=== PATIENT | male | born 1945 | race Caucasian/White ===

== ENCOUNTER → 2020-02-29 13:19 | Outpatient (BNVA) | payer MEDICARE, SELFPAY | PROVIDERS: PCP Internal Medicine; Visit Provider Urology | DX: N40.1 Benign prostatic hyperplasia with lower urinary tract symptoms (principal); N13.8 Other obstructive and reflux uropathy; N52.01 Erectile 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 | CPT/HCPCS: 81002; 99214 ==

== ENCOUNTER → 2020-06-04 13:50 | Outpatient (BNVA) | payer MEDICARE, SELFPAY | PROVIDERS: PCP Internal Medicine; Visit Provider Urology | DX: N52.01 Erectile 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 (principal); N40.1 Benign prostatic hyperplasia with lower urinary tract symptoms; N13.8 Other obstructive and reflux uropathy | CPT/HCPCS: 99212; Q3014 ==

== ENCOUNTER 2021-01-28 11:47 | Outpatient (REF) | payer MEDICARE, SELFPAY ==
[2021-01-28 14:40] LABS: Prostate Specific Antigen 2.51 ng/mL (<0.05-4.0)
== END 2021-01-28 11:48 | disposition home or self-care (01) ==
LOC: HO.10HDL 11:47
PROVIDERS: Visit Provider Urology
DX: Z12.5 Encounter for screening for malignant neoplasm of prostate (principal); N40.1 Benign prostatic hyperplasia with lower urinary tract symptoms; N13.8 Other obstructive and reflux uropathy
CPT/HCPCS: 36415; 84153

== ENCOUNTER → 2021-02-04 11:37 | Outpatient (BNVA) | payer MEDICARE, SELFPAY | PROVIDERS: Visit Provider Urology | DX: N40.1 Benign prostatic hyperplasia with lower urinary tract symptoms (principal); N13.8 Other obstructive and reflux uropathy; R97.20 Elevated prostate specific antigen [PSA] | CPT/HCPCS: 51798; 99212 ==

== ENCOUNTER 2021-03-17 10:50 | Outpatient (REF) | payer MEDICARE, SELFPAY ==
--- NOTE | ~2021-03-17 | US_ITS ---
EXAMINATION: US PELVIS LIMITED (BLADDER) CLINICAL INFORMATION: Poor urinary stream. COMPARISON: None TECHNIQUE: Real-time imaging of the bladder. FINDINGS: BLADDER: The bladder appears only partially distended. No gross bladder abnormality identified. No focal bladder wall thickening. Bilateral ureteral jets are demonstrated. Prevoid bladder volume is 145 mL. Postvoid bladder volume is 15.7 mL. PROSTATE GLAND: 5.7 x 5.0 x 5.2 cm, volume 77 mL. US/US bladder IMPRESSION: 1. Enlarged prostate gland. 2. Unremarkable sonographic imaging of the bladder.
== END 2021-03-17 10:51 | disposition home or self-care (01) ==
LOC: HO.US 10:50
PROVIDERS: Visit Provider Urology
DX: R39.12 Poor urinary stream (principal); N40.1 Benign prostatic hyperplasia with lower urinary tract symptoms; N13.8 Other obstructive and reflux uropathy
CPT/HCPCS: 76857

== ENCOUNTER → 2021-03-27 09:50 | Outpatient (BNVA) | payer MEDICARE, SELFPAY | PROVIDERS: Visit Provider Urology | DX: N52.01 Erectile 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 (principal); N40.1 Benign prostatic hyperplasia with lower urinary tract symptoms; N13.8 Other obstructive and reflux uropathy | CPT/HCPCS: 52000; 99212 ==

== ENCOUNTER 2021-06-02 08:10 | Day surgery (SDC) | payer MEDICARE, SELFPAY ==
[2021-05-27 14:38] VITALS: BMI 32.5
--- NOTE | 2021-05-30 13:08 | HO.ANESPROP2 ---
Documented by User: Génesis Aguilar NP 05/30/21 13:13 HPI - Anesthesia Eval Consult details Narrative: 76yo M for Laser Ablation Prostate w/Green Light PMFSH Active Problems Active Problems: All Active Problems (Updated 05/27/21 @ 14:39 by Melida Acevedo RN) Elevated PSA (Acute) BPH w urinary obs/LUTS (Acute) Erectile 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 (Acute) Past Medical History Medical History (Updated 05/27/21 @ 14:39 by Melida Acevedo RN) BPH (benign prostatic hyperplasia) COVID-19 vaccine series completed Elevated PSA Erectile dysfunction GERD (gastroesophageal reflux disease) HTN (hypertension) Hyperlipidemia Hypothyroid Renal mass Surgical History Surgical History History of surgery Social History Social History Are you a primary insurance healthcare consultant to a significant other at home: No Do you presently have visiting nurse or other home services: No Patient Tobacco Use Status: Former Tobacco user Quit Date: age 47 Tobacco use type: Cigarette Use of substances other than those prescribed or required for medical reasons: No Are you DNR?: No Advance Directives: No (states is his 7 will bring copy of HCP DOS) Advance Directives Information Provided: Yes Advance Directives on File: No Recently lost weight without trying: No Eating poorly because of decreased appetite: No Nutrition Risks: No Nutritional Risk Meds Allergies Allergy/AdvReac Type Severity Reaction Status Date / Time No Known Allergies Allergy Verified 03/27/21 10:15 Home Medications Medication Instructions Recorded Confirmed Last Taken Type finasteride 5 mg tablet 5 mg PO DAILY 02/29/20 02/29/20 Unknown History flu vac qv 2019(18yr up)rc(PF) ml IM 02/29/20 02/29/20 Unknown History levothyroxine 88 mcg tablet 88 mcg PO DAILY 02/29/20 05/27/21 Unknown History lisinopril 5 mg tablet 5 mg PO DAILY 02/29/20 05/27/21 Unknown History metoprolol succinate 50 mg 50 mg PO DAILY 02/29/20 05/27/21 Unknown History tablet,extended release 24 hr omeprazole 40 mg capsule,delayed 40 mg PO DAILY 02/29/20 05/27/21 Unknown History release sertraline 50 mg tablet 50 mg PO DAILY 02/29/20 05/27/21 Unknown History simvastatin 40 mg tablet 40 mg PO BEDTIME 02/29/20 05/27/21 Unknown History varicella-zoster glycoE [id number] IM 02/29/20 02/29/20 Unknown History adj(PF) 50 mcg/0.5 mL IM susp, kit clobetasol 0.05 % topical cream 1 appl TOPICAL BID 02/04/21 05/27/21 Unknown History fenofibrate 54 mg tablet 54 mg PO DAILY 02/04/21 05/27/21 Unknown History Exam Exam Date and Time: May 30, 2021 1308 Height,Weight and Vital Signs: Height 5 ft 8 in Weight 97.069 kg Assessment and Plan Assessment Anesthesia Assessment: Chart Reviewed Documented by User: Miladys Aguirre MD 06/02/21 08:44 [facility] Past Medical History Medical History (Updated 05/27/21 @ 14:39 by Melida Acevedo RN) BPH (benign prostatic hyperplasia) COVID-19 vaccine series completed Elevated PSA Erectile dysfunction GERD (gastroesophageal reflux disease) HTN (hypertension) Hyperlipidemia Hypothyroid Renal mass Family History Family history of problems with anesthesia: No Surgical History Surgical History History of surgery History of Problems with Anesthesia: No Social History Social History Are you a primary insurance healthcare consultant to a significant other at home: No Do you presently have visiting nurse or other home services: No Patient Tobacco Use Status: Former Tobacco user Quit Date: age 47 Tobacco use type: Cigarette Use of substances other than those prescribed or required for medical reasons: No Are you DNR?: No Advance Directives: No (states is his 7 will bring copy of HCP DOS) Advance Directives Information Provided: Yes Advance Directives on File: No Recently lost weight without trying: No Eating poorly because of decreased appetite: No Nutrition Risks: No Nutritional Risk Meds Allergies Allergy/AdvReac Type Severity Reaction Status Date / Time No Known Allergies Allergy Verified 03/27/21 10:15 Home Medications Medication Instructions Recorded Confirmed Last Taken Type finasteride 5 mg tablet 5 mg PO DAILY 02/29/20 02/29/20 Unknown History flu vac qv 2019(18yr up)rc(PF) ml IM 02/29/20 02/29/20 Unknown History levothyroxine 88 mcg tablet 88 mcg PO DAILY 02/29/20 05/27/21 Unknown History lisinopril 5 mg tablet 5 mg PO DAILY 02/29/20 05/27/21 Unknown History metoprolol succinate 50 mg 50 mg PO DAILY 02/29/20 05/27/21 Unknown History tablet,extended release 24 hr omeprazole 40 mg capsule,delayed 40 mg PO DAILY 02/29/20 05/27/21 Unknown History release sertraline 50 mg tablet 50 mg PO DAILY 02/29/20 05/27/21 Unknown History simvastatin 40 mg tablet 40 mg PO BEDTIME 02/29/20 05/27/21 Unknown History varicella-zoster glycoE vacc-[id number] IM 02/29/20 02/29/20 Unknown History adj(PF) 50 mcg/0.5 mL IM susp, kit clobetasol 0.05 % topical cream 1 appl TOPICAL BID 02/04/21 05/27/21 Unknown History fenofibrate 54 mg tablet 54 mg PO DAILY 02/04/21 05/27/21 Unknown History Exam Airway Mallampati Class: II TM Dist: >3cm Neck ROM: Full Heart: rrr Lungs: cta Assessment and Plan Assessment Anesthesia Assessment: Anesthesia Plan Discussed and Chart Reviewed Final Anesthetic Review Family History of Problems with Anesthesia: No History of Problems with Anesthesia: No NPO: Yes ASA Class: III Final Preanesthetic Review: No Changes in Pt Med Stat, Meds/Allgs Chart Reviewed and Consent Obtained/Reviewed Patient Risk: Intermediate Procedure Risk: Intermediate Anesthetic Plan Anesthetic Plan: GA Disposition: Standard PACU
[2021-06-02] VITALS (8 sets, daily range): BP systolic 106–177; BP diastolic 46–78; PULSE 49–57; RESP 16–18; TEMP 36–37.3; O2SAT 94–97
[2021-06-02] MEDS: Lactated Ringers 1,000 ML 100 ML IVCONT (08:48)
--- NOTE | 2021-06-02 09:11 | ECG_ITS ---
Test Reason : inverted t wave Blood Pressure : / mmHG Vent. Rate : 057 BPM Atrial Rate : 057 BPM P-R Int : 196 ms QRS Dur : 088 ms QT Int : 432 ms P-R-T Axes : 058 -33 094 degrees QTc Int : 420 ms Sinus bradycardia Left axis deviation T wave abnormality, consider lateral ischemia Abnormal ECG No previous ECGs available Referred By: Miladys Aguirre Electronically Signed By:JOVAN DAMIAN MD
--- NOTE | 2021-06-02 09:59 | MHC.SHP ---
Pre-Procedural Eval Section A Date of Service: 06/02/21 The patient is an INPATIENT: No Changes since office visit: No Cold of Flu in the past 2 weeks, No New Medical Problems, No Changes in Medication and No Patient answered all questions The History & Physical has been completed within 30 days and I have reviewed it.: Yes Section B Chief Complaint: benign prostatic hyperplasia Allergies: Allergies Allergy/AdvReac Type Severity Reaction Status Date / Time No Known Allergies Allergy Verified 03/27/21 10:15 Plan Diagnosis/Plan: Unchanged (Laser enucleation of the prostate) I have reviewed the history and physical and performed a pertinent physical examination on my patient. No changes have occurred unless specified.
--- NOTE | 2021-06-02 10:01 | MHC.SHP ---
Pre-Procedural Eval Section A Date of Service: 06/02/21 The patient is an INPATIENT: No Changes since office visit: No Cold of Flu in the past 2 weeks, No New Medical Problems, No Changes in Medication and No Patient answered all questions Section B Chief Complaint: benign prostatic hyperplasia Details of Present Illness: BPH Relevant Family History (Specify if Yes): No Relevant Social History: None Present Medications: see Short Stay Collaborative assessment Medical History: No relevant PMH History of Previous Operations: No relevant previous surgery Allergies: Allergies Allergy/AdvReac Type Severity Reaction Status Date / Time No Known Allergies Allergy Verified 03/27/21 10:15 Review of Systems Sugical H&P ROS: Negative: Constitution, Cardiovascular, Respiratory, Neurological, Psychiatric, Hem-Onc, Allergic/Immunologic, Gastrointestinal, Genitourinary, Musculoskeletal, Integumentary, Endocrine and Eyes/Ears/Nose/Throat Exam Surgical H&P Exam: Normal: HEENT, Normal: Heart, Normal: Lungs, Normal: Extremities, Normal: Abdomen, Normal: Skin and Normal: Neurological Plan Diagnosis/Plan: Unchanged (Laser enucleation of prostate) I have reviewed the history and physical and performed a pertinent physical examination on my patient. No changes have occurred unless specified.
--- NOTE | 2021-06-02 11:35 | P.OP_ITS ---
Operative Note Operative Note Date of Service: 06/02/21 Narrative: PreOperative Diagnosis: Bladder outlet obstruction Post Operative Diagnosis: Bladder outlet obstruction Procedure: GreenLight laser enucleation of the prostate Surgeon: Dr Sanjeev Vance Anesthesia: General Indications for procedure: History of bladder outlet obstruction. Treated with alpha-refugio and other medications. Still with symptoms. On cystoscopy in office has trilobar impingement with large median lobe. Recommend enucleation of prostate using GreenLight laser Procedure: After informed consent was verified the patient was brought to the operating room and placed in a supine position. Anesthesia was administered per protocol. Patient was placed in modified dorsal lithotomy position and prepped and draped in a sterile fashion. Safety pause time-out was confirmed. Antibiotics have been given. Twenty-four [place] laser cystoscope was inserted per urethra. No abnormalities found the anterior posterior urethra. The bladder was filled on both ureteric orifices were seen in normal position away from our area of interest. Using a GreenLight laser settings of 80 w incisions were made at the 5 and 7 o'clock position. They were taken down and then laterally on each side. They were brought from the bladder neck down to the level of the veru. These defined the lateral aspects of the median lobe area. The median lobe was ablated and enucleated tissue removed. Once the median lobe area had been cleaned attention was directed to the lateral lobes. We started with the patient's left lateral lobe. Firstly the 05:00 o'clock groove was further developed. This was moved in the lateral position to undermine the tissue on the lateral side. Focus was then placed on the laser at the 1 o'clock position in developing a secondary groove down to the level of bladder fibers. The intervening tissue between these 2 grooves was removed with a combination of enucleation ablation working from the apex toward the bladder neck. A similar procedure was repeated on the patient's right-hand side. When this was completed debris and pieces of prostate removed from the bladder. Both ureteric orifices were reviewed again in shown to be patent in away from any areas of energy damage. The apical area was reviewed in any stray ooze was controlled. A 22 [place] 30 cc balloon Alaniz catheter was placed over stylet into the bladder. Clear efflux was obtained. 30 cc was placed in the balloon and gentle traction was placed. A snap was used to hold tension once the patient will be moved and transported. Once transportation its finish this novel be removed. A belladonna and opiate suppository was placed for postprocedure pain management. He tolerated procedure well was extubated in the operating and transferred in a stable condition to the recovery area. Total lasing energy 266 kilojoules, laser times 32 mins Pathology: Prostate tissue Drains: Alaniz catheter
== END 2021-06-02 13:34 | disposition home or self-care (01) ==
PROVIDERS: PCP Internal Medicine; Visit Provider Urology
PROC: (CPT 52648; principal; 2021-06-02 10:10)
DX: N40.1 Benign prostatic hyperplasia with lower urinary tract symptoms (principal); N52.01 Erectile 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; N13.8 Other obstructive and reflux uropathy; R39.12 Poor urinary stream; R39.11 Hesitancy of micturition; R33.8 Other retention of urine; K21.9 Gastro-esophageal reflux disease without esophagitis; I10 Essential (primary) hypertension; E78.5 Hyperlipidemia, unspecified; Z79.899 Other long term (current) drug therapy; Z87.891 Personal history of nicotine dependence
CPT/HCPCS: 52648; 88305; 93005; J1100; J1956; J2405; J3010

== ENCOUNTER → 2021-06-05 08:51 | Outpatient (BNVA) | payer MEDICARE, SELFPAY | PROVIDERS: PCP Internal Medicine; Visit Provider Urology | DX: N40.1 Benign prostatic hyperplasia with lower urinary tract symptoms (principal); N13.8 Other obstructive and reflux uropathy | CPT/HCPCS: 51700; 51798 ==

== ENCOUNTER → 2021-07-22 09:30 | Outpatient (BNVA) | payer MEDICARE, SELFPAY | PROVIDERS: PCP Internal Medicine; Visit Provider Urology | DX: N40.1 Benign prostatic hyperplasia with lower urinary tract symptoms (principal); N13.8 Other obstructive and reflux uropathy; N52.01 Erectile 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; R97.20 Elevated prostate specific antigen [PSA] | CPT/HCPCS: 51798; 99212 ==

== ENCOUNTER → 2022-01-22 11:24 | Outpatient (BNVA) | payer MEDICARE, SELFPAY | PROVIDERS: PCP Internal Medicine; Visit Provider Urology | DX: N52.01 Erectile 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 (principal); N40.1 Benign prostatic hyperplasia with lower urinary tract symptoms; N13.8 Other obstructive and reflux uropathy | CPT/HCPCS: Q3014 ==

== ENCOUNTER 2023-10-20 18:28 | Outpatient (REF) | payer MEDICARE, SELFPAY ==
[2023-10-20 18:42] LABS: Appearance Urine Cloudy; Color Urine Yellow; Glucose Urine UA Negative (Negative); Leukocyte Esterase Urine Large (3+) (Negative); Nitrite Urine Negative (Negative); PH 6.5 (5.0-9.0); UMIC TRIGGER UACC YES; Urine Blood Large (3+) (Negative); Urine Ketones Negative (Negative); Urine Protein Trace mg/dL (Neg-Trace)
[2023-10-20 18:44] LABS: Bacteria Urine Trace (None Seen); Hyaline Casts Urine 0-2 /LPF (0-2); Squamous Epithelial Cell Urine 0-2 /HPF (0-2); UACC Culture Trigger YES; WBC Urine >50 /HPF (0-5)
== END 2023-10-20 18:29 | disposition home or self-care (01) ==
LOC: HO.MANLNP 18:28
PROVIDERS: Visit Provider Physician Assistant
DX: N10 Acute pyelonephritis (principal)
CPT/HCPCS: 81001; 87086

== ENCOUNTER 2024-02-15 11:40 | Outpatient (REF) | payer MEDICARE, SELFPAY ==
[2024-02-15 13:31] LABS: Appearance Urine Clear; Color Urine Yellow; Glucose Urine UA Negative (Negative); Leukocyte Esterase Urine Negative (Negative); Nitrite Urine Negative (Negative); PH 6.5 (5.0-9.0); Specific Gravity - Urine <= 1.005 (1.005-1.025); UMIC TRIGGER UACC YES; Urine Blood Small (1+) (Negative); Urine Ketones Negative (Negative); Urine Protein Negative (Neg-Trace)
[2024-02-15 13:49] LABS: Bacteria Urine None Seen (None Seen); Hyaline Casts Urine 0-2 /LPF (0-2); RBC Urine 0-2 /HPF (0-2); Squamous Epithelial Cell Urine 0-2 /HPF (0-2); WBC Urine 0-5 /HPF (0-5)
== END 2024-02-15 11:41 | disposition home or self-care (01) ==
LOC: HO.MANLDS 11:40
PROVIDERS: Visit Provider Physician Assistant
DX: N10 Acute pyelonephritis (principal)
CPT/HCPCS: 81001

== ENCOUNTER 2024-03-17 07:57 | Outpatient (REF) | payer MEDICARE, SELFPAY ==
--- NOTE | ~2024-03-17 | CT_ITS ---
EXAMINATION: CT ABDOMEN AND PELVIS WITHOUT AND WITH CONTRAST CLINICAL INFORMATION: Hematuria. Evaluate for bladder cancer, stones, cystitis. COMPARISON: Bladder ultrasound dated 03/17/2021. TECHNIQUE: Multidetector volumetric imaging was performed of the abdomen and pelvis before and after the IV administration of 85 mL of Omnipaque 300 intravenous contrast. Sagittal and coronal reformatted images were obtained on the technologist's workstation. This CT examination was performed using dose optimization techniques as appropriate, variously including the following: *Automated exposure control *Adjustment of mA and/or kV according to patient size (this includes techniques or standardized protocols for targeted exams where dose is matched to indication/reason for exam; i.e. extremities or head) *Use of iterative reconstruction technique DLP: 948 mGy-cm FINDINGS: LUNG BASES: The visualized lung bases are unremarkable. LIVER, GALLBLADDER, AND BILIARY TREE: The liver is normal in size and shape. Mild parenchymal hypoattenuation, consistent with mild steatosis. No focal hepatic lesion or biliary ductal dilatation is present. The gallbladder is unremarkable with no evidence of radiopaque gallstones, gallbladder wall thickening, or obvious pericholecystic inflammatory changes. PANCREAS: Unremarkable. SPLEEN: Unremarkable. ADRENAL GLANDS: Unremarkable. KIDNEYS AND URETERS: The kidneys are normal in size, shape, and attenuation. No hydronephrosis, hydroureter, or calculi seen. Multiple parapelvic and parenchymal renal cysts. Findings are not clinically significant and no dedicated follow-up imaging is recommended. No perinephric stranding. BLADDER: Partially distended urinary bladder. No wall thickening or inflammatory change. No calcification. Prominent prostatomegaly with mass effect on the urinary bladder and ingrowth of the prostate tissue into the posterior aspect of the bladder. Overall the prostate measures up to 5.2 x 5.2 x 7.2 cm. GASTROINTESTINAL TRACT: No small or large bowel obstruction. Sigmoid diverticulosis without evidence of acute diverticulitis. Unremarkable appendix. PERITONEAL CAVITY: No intra-abdominal free air or free fluid. ABDOMINAL WALL: No significant hernia is appreciated. LYMPH NODES: No lymphadenopathy. VASCULAR: No abdominal aortic dissection or dilatation. Atherosclerotic calcifications. PELVIC VISCERA: Prominent prostatomegaly with mass effect on the posterior urinary bladder as well as lobulated ingrowth as described above. OSSEOUS STRUCTURES: No acute osseous abnormality. CT/CT abdomen pelvis wo/w IV con IMPRESSION: 1. Prominent prostatomegaly with mass effect on the urinary bladder and ingrowth into the posterior aspect of the urinary bladder. No urinary bladder wall thickening or inflammatory change. No calcification. 2. No hydronephrosis or nephrolithiasis. Multiple bilateral renal cysts. 3. Mild hepatic steatosis. No hepatic parenchymal lesion or biliary ductal dilatation. 4. Diverticulosis without evidence of acute diverticulitis. No small or large bowel obstruction. Unremarkable appendix. 5. No intra-abdominal mass, lymphadenopathy, or ascites. Fleischner guidelines were followed. Electronically signed by: Bhargav Cabrera MD 03/17/2024 11:23 AM [facility]
[2024-03-17] MEDS: iohexoL 350 MG/ML 100 ML INFUS..BTL 85 ML IV (09:29)
[2024-03-17 15:27] LABS: Creatinine POC 1.2 mg/dL (0.5-1.4); GFR POC > 60
== END 2024-03-17 07:58 | disposition home or self-care (01) ==
LOC: HO.CT 07:57
PROVIDERS: PCP Internal Medicine; Visit Provider Internal Medicine
DX: R31.0 Gross hematuria (principal)
CPT/HCPCS: 74178; 82565; Q9967

== ENCOUNTER 2024-05-16 13:15 | Outpatient (AMB) | payer MEDICARE, SELFPAY ==
--- NOTE | 2024-05-16 13:25 | A.OFFVIS_ITS ---
Intake Visit Reasons: PVR/Enlarged Prostate/CT Follow Up(set) Intake Note: Patient is present for PVR/ENLARGE PROSTATE/CT F/U Urology Medication:TADALAFIL Antibiotic Allergy:NONE Blood Thinner:NONE TODAY'S PVR:0ML'S Bottoming Room Supervisor Required: No Allergies No Known Allergies Allergy (Verified 05/16/24 13:27) HPI Comments Details: Oh is a pleasant male. He is a patient of Dr. Grace. He is seen for the following urologic conditions - lower urinary tract symptoms - erectile dysfunction Last seen 01/27/2022 PVR 0 cc Remains on tadalafil Has had episode of gross hematuria Recommend office cystoscopy 04/02 CT scan with enlarged prostate Trial terazosin Lower Urinary Tract Symptoms: PSA stable 2.2 Current visit is for further evaluation of, lower urinary tract symptoms, predominate obstructive symptoms. Current treatment includes - 05/31 GreenLight laser prostate Prostate Symptom Score 06/26 Mild (0-8), Bother 2 07/25 , Mild (0-8), Bother 2 08/27 , Mild (0-8), Bother 3. Symptoms include 08/27 , and are progressing, weak stream, nocturia (>2). Prior Prostate Score mild. PSA 11/20 8.4 - TRUS negative, December 2014 4.6 07/25 2.4, 07/26 1.9, 08/27 2.5, 01/27 2.5 Free 0.7 - 01/28 2.5, 01/29 2.2 Prostate volume 90 gm on US. Associated conditions CAD No CVA No diabetes No elevated PSA No erectile dysfunction No hematuria No renal insufficiency No urge incontinence No urinary retention No urinary tract infection No psychiatric diagnosis No Testing at next visit will include Prostate Symptom Score, uroflow, bladder scan. Treatment plan 12 month follow-up [facility] Medical History BPH (benign prostatic hyperplasia) COVID-19 vaccine series completed Elevated PSA Erectile dysfunction GERD (gastroesophageal reflux disease) HTN (hypertension) Hyperlipidemia Hypothyroid Renal mass Surgical History History of surgery Social History Are you a primary ambulatory care coordinator to a significant other at home: No Do you presently have visiting nurse or other home services: No Patient Tobacco Use Status: Former Tobacco user Tobacco use type: Cigarette Office Procedures Post Void Residual Post Residual Void Post Void Residual (PVR): 0 [id number] Void Residual by ultrasound Results AMB Urinalysis, Automated UA Leukoctes 0 Manjula/uL Last Edit by FLOYD Paul on 05/16/24 13:37 UA Nitrite Negative Last Edit by Ke Whitmore CCM on 05/16/24 13:37 UA Urobilinogen 0.2 mg/dL Last Edit by Ke Whitmore [facility] on 05/16/24 13:3 7 UA Protein 15 mg/dL Last Edit by Ke Whitmore [facility] on 05/16/24 13:37 UA pH 6.0 Last Edit by Ke Whitmore [facility] on 05/16/24 13:37 UA Blood 0 Joon/uL Last Edit by Ke Whitmore [facility] on 05/16/24 13:37 UA Specific [place] 1.015 Last Edit by Ke Whitmore CCM on 05/16/24 13: 37 UA Ketone Negative Last Edit by Ke Whitmore [facility] on 05/16/24 13:37 UA Bilirubin 0 mg/dL Last Edit by Ke Whitmore [facility] on 05/16/24 13:37 UA Glucose 0 mg/dL Last Edit by Ke Whitmore [facility] on 05/16/24 13:37 Results Reviewed Results Reviewed: Laboratory Last Values Urine pH (Auto) 6.0 05/16/24 13:37 Specific [place] (Auto) 1.015 05/16/24 13:37 Urine Protein (Auto) 15 mg/dL 05/16/24 13:37 Glucose (UA)(Auto) 0 mg/dL 05/16/24 13:37 Urine Ketones (Auto) Negative 05/16/24 13:37 Urine Blood (Auto) 0 Joon/uL 05/16/24 13:37 Urine Nitrite (Auto) Negative 05/16/24 13:37 Urine Bilirubin (Auto) 0 mg/dL 05/16/24 13:37 Urine Urobilinogen (Auto) 0.2 mg/dL 05/16/24 13:37 Leukocyte Esterase (Auto) 0 Manjula/uL 05/16/24 13:37 Assessment & Plan Assessment & Plan (1) Gross hematuria: Code(s): R31.0 - Gross hematuria Category: Medical (2) BPH w urinary obs/LUTS: Code(s): N40.1 - Benign prostatic hyperplasia with lower urinary tract symptoms; N13.8 - Other obstructive and reflux uropathy Category: Medical Plan Plan cystoscopy Orders: Orders AMB Urinalysis Automated Today Z13.9 - Encounter for screening, unspecified Medications: New terazosin 5 mg PO BEDTIME 30 days 30 caps 1RF N13.8 - Other obstructive and reflux uropathy, N40.1 - Benign prostatic hyperplasia with lower urinary tract symptoms, R35.0 - Frequency of micturition Coding Diagnoses Gross hematuria R31.0 BPH w urinary obs/LUTS N40.1; N13.8 CPT Codes Post Residual Void - PVR CPT Code: 69879-[id number] Void Residual by ultrasound ([id number])
--- OUTSIDE RECORDS SUMMARY | 2024-05-16 15:40 | XMS_ITS | Continuity of Care Document ---
Author Organization [facility], [facility] Address [address] [place] [address] Assessment Encounter Date Assessment Date Assessment LastModified by Organization Details LastModified Time 02/28/2024 02/28/2024 Patient presente d to office today for their Medicare Annual Wellness Visit. Education was provided on healthy nutrition, including a diet rich in fruits and vegetables, minimizing simple carbohydrates, salt, and saturated fats. Encouraged regular cardiovascular exercise such as walking at least 30 minutes daily, 5 times per week. Emphasized preventive health measures and educated pt on fall prevention and community-based lifestyle interventions to help reduce health risks and promote healthy living. Not available 02/09/2024 11:06:57 Plan of Treatment Reminders Order Date Submit Date Provider Last Modified By Organization Details Last Modified Time Details Appointments FOLLOW UP 15 2024 10:15A M DR FOUNTAIN Not available Not available Not available MEDICARE ANNUAL WELLNESS 2024 11:30A M DR FOUNTAIN Not available Not available Not available Lab cytology, urine 2023 024 [facility], [address] [place] [address], [id number], 03/01/2024 11:13:58 CMP, serum or plasma 2023 024 [facility] (Outpatient), [address] [place] [address], [id number], 02/28/2024 18:29:13 lipid panel, blood 2023 024 [facility] (Outpatient), [address] [place] [address], [id number], 02/28/2024 13:53:46 hemoglobi n, gastroint estinal, stool 2023 [facility] (Outpatient), [address] [place], [id number], 02/28/2024 13:53:46 CBC w/ auto diff 2023 [facility] (Outpatient), [address] [place] [address], [id number], 02/28/2024 17:43:17 CMP, serum or plasma 2023 [facility] (Outpatient), [address] [place] [address], [id number], 02/28/2024 13:53:46 Referral None recorded. Procedures None recorded. Surgeries None recorded. Imaging CT, abdomen + pelvis, w/o contrast - estephania please 2023 [facility], [address] [place], [id number], 02/29/2024 08:28:21 Medication Orders None recorded. Patient TargetsNo targets recorded. Patient Instructions Encounter Date Encounter Id Patient Instructions Last Modified By Organization Details Last Modified Time 02/28/2024 [id number] blood in the urine: care instructions Not available 02/28/2024 13:52:23 advance care planning: care instructions Not available 02/28/2024 13:52:24 Discussed and explained advance directives such as standard forms to the {{patient* caregi mark patient and caregiver}}. Face to face discussion lasted for a duration of __10_ minutes. Not available 02/28/2024 13:53:23 Reason for Referral None Reported. Results Created Date Observation Date Name Description Value Unit Range Abnormal Flag Note LastModifiedBy Organization Detail LastModifiedTime 03/17/20 24 03/17/2024 CT, abdom en + pelvi s, w/o contr ast No observ ation record ed. [facility] [address], [place], [address], 03/17/2024 14:15:44 Result Notes None recorded. 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 911131103 Active 2020 Nick Fountain DO [address] [place], [address], [facility] 1 16:40:19 Hypercho lesterol emia 47847133 Active 2017 Not Available [facility] 0 20:05:24 Atherosc lerosis Active 2017 Not Available [facility] 0 20:05:24 Divertic ulitis 896186450 Active 2017 Not Available [facility] 0 20:05:24 Polyp of colon 27376053 Active 2017 hyperplas tic Not Available [facility] 0 20:05:24 Cyst of kidney 990144382 Active 2017 Not Available [facility] 0 20:05:24 Gastriti s 6482525 Active 2017 Not Available [facility] 0 20:05:24 Dugan' s esophagu s 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 2017 Not Available [facility] 0 20:05:24 Gastroes ophageal reflux disease 220583494 Active 2017 Not Available [facility] 0 20:05:24 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 Not Available [facility] 0 20:05:24 Prostate specific antigen above referenc e range 236478966 Active 2017 Not Available [facility] 0 20:05:24 Impaired fasting glycemia 717102068 Active 2017 Not Available [facility] 0 20:05:24 Steatosi s of liver 997921112 Active 2017 Not Available [facility] 0 20:05:24 Essentia l hyperten casey 86104113 Active 2022 ANN WILDER [address] [place], [address], [facility] 3 11:21:04 Pain of bilatera l knee joints 14732553253 4104 Active 2022 ANN WILDER [address] [place], [address], [facility] 3 11:25:12 Chondrom alacia of left patella 48654464873 9106 Active 2022 ANN WILDER [address] [place], [address], [facility] 3 11:25:45 Pain of right knee joint 17533873366 4100 Active 2022 ANN WILDER [address] [place], [address], [facility] 3 15:30:22 Pain of left knee joint 02536413476 4107 Active 2022 ANN WILDER [address] [place], [address], [facility] 3 15:30:31 Renal insuffic iency 826928765 Active 2023 Nick Fountain DO [address] [place], [address], [facility] 4 14:50:10 Acute urinary tract infectio n 874433930 Active 2023 ANN WILDER [address] [place], [address], [facility] 4 14:11:06 Kidney stone 84263361 Active 2023 ANN WILDER [address] [place], [address], [facility] 4 14:12:11 Oh powell 398147418 Active 2023 ANN WILDER [address] [place], [address], [facility] 4 09:50:19 Fear of flying 437702646 Active 2023 ANN WILDER [address] [place], [address], [facility] 4 10:27:10 Large prostate 043295749 Active 2023 ANN WILDER [address] [place], [address], [facility] 4 14:16:21 Problem Notes None recorded. Procedures Surgical History Date Name Laterality Status Provider Name and Address Organization Details Recorded Time 6 Colonoscopy completed Joana Hoover [facility] 04/22/2018 10:36:22 Imaging Results None recorded. Procedure Notes None recorded. Medical Equipment None Reported. Allergies No known drug allergies Medications Name Sig Start Date Stop Date Status Note LastModified by Organization Details LastModified Time metoprolol succinate ER 50 mg tablet,exte nded release 24 hr TAKE 1 TABLET BY MOUTH ONCE DAILY 10/06 completed Not Available Not Available Not Available sulfamethox azole 400 mg-trimetho prim 80 mg tablet TAKE 1 TABLET BY MOUTH ONCE DAILY 11/19 completed Not Available Not Available Not Available metoprolol succinate ER 100 mg tablet,exte nded release 24 hr TAKE 1 TABLET BY MOUTH ONCE DAILY active Not Available Not Available No t Available clobetasol 0.05 % topical cream APPLY A THIN LAYER TOPICALLY TO AFFECTED AREA(S) TWICE DAILY active Not Available Not Available No t Available ciprofloxac in 500 mg tablet TAKE 1 TABLET BY MOUTH EVERY 12 HOURS FOR 5 DAYS 02/27 completed Not Available Not Available Not Available omeprazole 40 mg capsule,del ayed release TAKE 1 CAPSULE BY MOUTH ONCE DAILY active Not Available Not Available No t Available tramadol 50 mg tablet TAKE 1 TABLET BY MOUTH EVERY 6 HOURS NEEDED FOR PAIN (SCALE SCORE 4-6) 11/19 completed Not Available Not Available Not Available triamcinolo ne acetonide 0.1 % topical cream 12/14 completed Not Available Not Available Not Available simvastatin 40 mg tablet TAKE 1 TABLET BY MOUTH ONCE DAILY IN THE EVENING active Not Available Not Available No t Available levothyroxi ne 100 mcg tablet TAKE 1 TABLET BY MOUTH ONCE DAILY active Not Available Not Available No t Available levothyroxi ne 88 mcg tablet TAKE 1 TABLET BY MOUTH ONCE DAILY. 04/13 completed Not Available Not Available Not Available tamsulosin 0.4 mg capsule 11/19 completed Not Available Not Available Not Available lisinopril 5 mg tablet TAKE 1 TABLET BY MOUTH ONCE DAILY 08/12 completed Not Available Not Available Not Available lorazepam 1 mg tablet TAKE 1 TABLET BY MOUTH THREE TIMES DAILY NEEDED FOR 5 DAYS 02/13 completed Not Available Not Available Not Available fluticasone propionate 50 mcg/actuati on nasal spray,suspe nsion [place] 4 sprays every day by intranasa l route for 30 days. active Not Available Not Available No t Available sertraline 50 mg tablet Take 1 tablet by mouth once daily 08/18 completed Not Available Not Available Not Available finasteride 5 mg tablet TAKE 1 TABLET BY MOUTH ONCE DAILY active Not Available Not Available No t Available naproxen 500 mg tablet TAKE 1 TABLET BY MOUTH TWICE DAILY FOR 7 DAYS NEEDED FOR PAIN 02/27 completed Not Available Not Available Not Available Pneumovax-2 3 25 mcg/0.5 mL injection syringe 08/12 completed Not Available Not Available Not Available Adacel (Tdap Adolesn/Jesus lt)(PF)2 Lf-(2.5-5-3 -5)-5 Lf/0.5 mL IM syringe 08/12 completed Not Available Not Available Not Available fenofibrate 54 mg tablet TAKE 1 TABLET BY MOUTH ONCE DAILY active Not Available Not Available No t Available Prevnar 13 (PF) 0.5 mL intramuscul ar syringe 04/22 completed Not Available Not Available Not Available Fluzone High-Dose 9460-6527 (PF) 180 mcg/0.5 mL intramuscul ar syringe 10/15 completed Not Available Not Available Not Available Shingrix (PF) 50 mcg/0.5 mL intramuscul ar suspension, kit PHARMACIS T ADMINISTE RED IMMUNIZAT ION ADMINISTE RED AT TIME OF DISPENSIN G 08/12 completed Not Available Not Available Not Available Fluzone High-Dose 5707-6525 (PF) 180 mcg/0.5 mL intramuscul ar syringe 04/22 completed Not Available Not Available Not Available Fluzone High-Dose (PF) 180 mcg/0.5 mL intramuscul ar syringe 08/12 completed Not Available Not Available Not Available Flublok Quad (PF) 180 mcg (45 mcg x 4)/0.5 mL IM syringe 08/12 completed Not Available Not Available Not Available Vitals Date Recorded Body height Body mass index (BMI) Body weight Heart rate Oxygen saturation Oxygen saturation in Arterial blood by Pulse oximetry Systolic blood pressure Diastolic blood pressure Provider Name and Address Organization Details Last Updated DateTime 4 173.99 cm 30.9 kg/m2 52865.0 3 g 58 /min 95 % 95 % 128 mm[Hg] 70 mm[Hg] Felice Coulter [facility] 13:23:39 Social History Question Answer Notes LastModified by Organizat ion Details LastModified Time Tobacco Smoking Status Former Smoker Not Available [facility] 03/12/2020 03:36:24 What Was The Date Of Your Most Recent Tobacco Screening? 02/28/2024 Information not available 02/28/2024 Do You Or Have You Ever Used Any Other Forms Of Tobacco Or Nicotine? No Information not available 10/06/2022 Sex: Unknown Functional Status None recorded. Mental Status None recorded. Family History Nothing Reported. Medical History No medical history recorded. Immunizations Vaccine Type Date Status Note Provider Nam e and Address Organization Details Recorded Time Influenza, split virus, quadrivalent, preservative 01/21/20 21 completed NICHOL Perez [facility] 01/20/2021 13:07:24 COVID-19, mRNA, LNP-S, PF, 30 mcg/0.3 mL dose 02/18/20 21 completed Nick Fountain, DO [address] [place], [address], [facility] 02/18/2021 08:27:41 COVID-19, mRNA, LNP-S, PF, 30 mcg/0.3 mL dose 08/15/19 21 completed Erica Parks null, [facility] 04/11/2021 16:38:50 COVID-19, mRNA, LNP-S, PF, 30 mcg/0.3 mL dose 08/20/19 22 completed Joana Hoover null, [facility] 08/19/2021 14:09:15 Influenza, split virus, quadrivalent, preservative 02/25/20 18 completed Not Available [facility] 01/23/2020 20:05:24 COVID-19, mRNA, LNP-S, PF, 30 mcg/0.3 mL dose 02/17/20 [facility] 02/17/2022 08:27:09 Influenza, split virus, quadrivalent, preservative 02/17/20 22 completed [facility] 02/17/2022 08:27:26 influenza, unspecified formulation 02/23/20 23 [facility]/22/2023 11:06:13 SARS-COV-2 (COVID-19) vaccine, UNSPECIFIED 02/23/20 23 [facility] 02/22/2023 11:06:45 COVID-19, mRNA, LNP-S, PF, 50 mcg/0.5 mL 01/19/20 24 completed [facility] 01/19/2024 15:33:44 influenza, unspecified formulation 01/19/20 24 completed [facility] 01/19/2024 15:34:57 Respiratory syncytial virus (RSV), unspecified 03/31/20 24 completed Nick Fountain, DO [address] [place], [address], [facility] 04/01/2024 08:50:01 Pneumococcal conjugate PCV 13 02/25/20 18 completed Not Available [facility] 01/23/2020 20:05:24 Influenza, split virus, quadrivalent, preservative 02/03/20 19 completed Not Available [facility] 01/23/2020 20:05:24 Tdap 12/12/19 20 completed Not Available [facility] 01/23/2020 20:05:24 pneumococcal polysaccharide PPV23 12/14/19 20 completed Not Available [facility] 01/23/2020 20:05:24 zoster, unspecified formulation 12/14/19 20 completed Not Available [facility] 01/23/2020 20:05:24 Influenza, split virus, quadrivalent, preservative 01/30/20 20 completed Brooke brown [facility] 01/30/2020 11:57:11 zoster, unspecified formulation 02/22/20 20 completed Nick Fountain, DO [address] [place], [address], [facility] 02/22/2020 20:05:57 COVID-19, mRNA, LNP-S, PF, 30 mcg/0.3 mL dose 07/20/19 21 completed Erica Gencarelle stephanie [facility] 04/11/2021 16:38:30 Past Encounters Encounter ID Performer Location Encounter Start Date Encounter Closed Date Diagnosis/Indication Diagnosis SNOMED-CT Code Diagnosis ICD10 Code Diagnosis Note [id number] [facility] [address] [address] 02/28/2024 13:16:06 02/28/2024 14:55:47 Adult health examination 451550495 Z00.01 will get fbw is doing ok overall could stand to lose some weight whcih he agrees nio a1c is done yet Screening for cardiovascular system disease 668248060 Z13.6 will chk lab Screening for malignant neoplasm of colon 278735039 Z12.11 Depression screening 171 467458 Z13.31 neg Oh hematuria 54856579 5 R31.0 given recurrence , will need cytology and CT scan cdh sched him foir late [id number] ANN WILDER [facility] [address] [address] 02/14/2024 10:43:48 02/15/2024 08:24:49 Acute urinary tract infection 597581198 N10 send out urine and set up with CT as the KUB was negative and urine has been negative?k idney stones vs infection vs malignancy Depression screening 171 494757 Z13.31 SCREENING NEGATIVE Gastroesop hageal reflux disease 452484114 K21.9 needs refill Oh hematuria 71371843 [address] Health Concerns Section Related Observation LastModified by Organization Detai ls LastModified Time None Recorded Concern Status LastModified by Organization Details LastModified Time None Recorded Payers Encounter Date Sequence Insurance Name Policy Number Policy Mirza Covered Member ID Mirza Member ID Guarantor Name 02/28/2024 1 [place]MEDICARE [place]PLACEMENT PPO) [id number] Oh Perry [id number] Oh Perry 02/28/2024 2 [place] [facility] Oh Perry [id number] Oh Perry Notes Date Note Type Note Provider Name a nd Address Organization Details Recorded Time 4 text/html Medicare Annual Wellness VisitReported bypatient.Diet and Nutrition:healthy diet Fracture Risk:no history of fractures; no recent explained fracture; no sudden unexplained fractures; no previous musculoskeletal injuries Physical Activity:exercises on a regular basis; recent increase in physical activity; good physical condition Depression Risk:never feels sad, empty, or tearful; no loss of interest in activities; no significant changes in weight; no sleep disturbances or insomnia; no agitation; no loss of energy; no feelings of worthlessness or guilt; no thoughts of suicide; no history of depression; no history of mood disorders Orientation:no disorientation to time; no disorientation to date; no disorientation to place Concentration and Memory:no decreased concentrating ability; no memory lapses or loss; does not forget words Speech/Motor difficulties:no speech difficulties; no difficulty expressing formulated concepts; no difficulty with fine manipulative tasks; no difficulty writing/copying; no slowed reaction time; does not knock things over when trying to pick them up Hearing:no loss of hearing Vision:no vision problems Activities of Daily Living:able to bathe with limited or no assistance; able to contol urination and bowels; able to dress with limited or no assistance; able to feed self with limited or no assistance; able to get out of chair or bed with limited or no assistance; able to groom with limited or no assistance; able to toilet with limited or no assistance Instrumental Activities of Daily Living:able to do house work with limited or no assistance; able to grocery shop with limited or no assistance; able to manage medications with limited or no assistance; able to manage money with limited or no assistance; able to prepare meals with limited or no assistance; able to use the phone with limited or no assistance Falls Risk Assessment:no frequent falls while walking; no fall in the past year; no fall since last visit; no dizziness/vertigo Home Safety:no unsafe niels hazzards; no unsafe stairs; no unsafe gas appliances; working smoke/CO detectors; wears protective head gear for biking/high velocity; use of seatbelts; practicing 'safer sex'; no vision or hearing loss while driving; no fire arms; has hand bars in the bathroom/shower; good lighting in the home as noted has had several bouts of oh blood in urinewas treated several times as noted with clearing each time he gets abxhas a discomfort in his lower abdomen suprapubic region and bilatno fevers no chills etc Nick Fountain, DO [address] [facility], [place], [address], [facility] 02/28/2024 13:58:53
--- OUTSIDE RECORDS SUMMARY | 2024-05-16 15:40 | XMS_ITS | Continuity of Care Document ---
Author Organization [facility], [facility] Address [address] [place] [address] Assessment No assessment recorded. Plan of Treatment Reminders Order Date Submit Date Provider Last Modified By Organization Details Last Modified Time Details Appointments FOLLOW UP 15 2024 10:15A M DR FOUNTAIN Not available Not available Not available MEDICARE ANNUAL WELLNESS 2024 11:30A M DR FOUNTAIN Not available Not available Not available Lab urinalysi s, dipstick 2023 [email or web address] [facility], [address], [place], [address], 02/14/2024 10:56:57 urinalysi s complete, reflex culture 2023 [facility], [address] [place] [address], [address], 02/16/2024 11:34:20 Referral None recorded. Procedures None recorded. Surgeries None recorded. Imaging CT, abdomen + pelvis, w/wo contrast 2023 [email or web address] Not available 02/16/2024 09:06:25 Medication Orders ciproflox acin 500 mg tablet 2023 [facility] [address] [place], [address], 02/28/2024 13:26:05 omeprazol e 40 mg capsule,d elayed release 2023 [facility] [address] [facility] [place], [address], 02/14/2024 11:21:13 Patient TargetsNo targets recorded. Patient InstructionsNo instructions recorded. Reason for Referral None Reported. Results Created Date Observation Date Name Description Value Unit Range Abnormal Flag Note LastModifiedBy Organization Detail LastModifiedTime 02/14/2002/14/2024 urina lysis , dipst ick Leukocytes Negati ve Not Available [facility] [address], [place], [address], 02/14/2024 10:53:56 02/14/2002/14/2024 urina lysis , dipst ick Nitrite negati ve Not Available [facility] [address], [place], [address], 02/14/2024 10:53:56 02/14/2002/14/2024 urina lysis , dipst ick Urobilinogen .2 Not Available [facility] [address], [place], [address], 02/14/2024 10:53:56 02/14/2002/14/2024 urina lysis , dipst ick Protein Negati ve Not Available [facility] [address], [place], [address], 02/14/2024 10:53:56 02/14/2002/14/2024 urina lysis , dipst ick pH 6.0 Not Available [facility] [address], [place], [address], 02/14/2024 10:53:56 02/14/2002/14/2024 urina lysis , dipst ick Blood Large Not Available [facility] [address], [place], [address], 02/14/2024 10:53:56 02/14/2002/14/2024 urina lysis , dipst ick Specific Pope 1.010 Not Available [facility] [address], [place], [address], 02/14/2024 10:53:56 02/14/2002/14/2024 urina lysis , dipst ick Ketone Negati ve Not Available [facility] [address], [place], [address], 02/14/2024 10:53:56 02/14/2002/14/2024 urina lysis , dipst ick Bilirubin Negati ve Not Available [facility] [address], [place], [address], 02/14/2024 10:53:56 02/14/2002/14/2024 urina lysis , dipst ick Glucose Negati ve Not Available [facility] [address], [place], [address], 02/14/2024 10:53:56 02/14/2002/14/2024 urina lysis , dipst ick Appearance Clear Not Available [facility] [address], [place], [address], 02/14/2024 10:53:56 02/14/2002/14/2024 urina lysis , dipst ick Color Yellow Not Available [facility] [address], [place], [address], 02/14/2024 10:53:56 03/17/2003/17/2024 CT, abdom en + pelvi s, w/o contr ast No observ ation record ed. rtba [facility] (Medical Records) [address], [place], [address], 03/17/2024 14:15:44 Result Notes None recorded. Problems Name Problem SNOMED Code Status Onset Date Resolution Date Notes Provider Name and Address Organization Details Recorded Time Eczema 90475502 Active 2020 Nick Fountain [address] [place], [address], [facility] 1 10:55:11 Benign prostati c hyperpla gertrude with outflow obstruct ion 080245277 Active 2020 Nick FountainDO [address] [place], [address], [facility] 1 16:40:19 Hypercho lesterol emia 33992993 Active 2017 Not Available [facility] 0 20:05:24 Atherosc lerosis Active 2017 Not Available [facility] 0 20:05:24 Divertic ulitis 138500822 Active 2017 Not Available [facility] 0 20:05:24 Polyp of colon 92818189 Active 2017 hyperplas tic Not Available [facility] 0 20:05:24 Cyst of kidney 127870409 Active 2017 Not Available [facility] 0 20:05:24 Gastriti s 0797828 Active 2017 Not Available [facility] 0 20:05:24 Dugan' s esophagu s 612265687 Active 2017 Not Available [facility] 0 20:05:24 Gastroes ophageal reflux disease 897026335 Active 2017 Not Available [facility] 0 20:05:24 Hypothyr oidism 60880931 Active 2017 Not Available [facility] 0 20:05:24 Prostate specific antigen above referenc e range 696992837 Active 2017 Not Available [facility] 0 20:05:24 Impaired fasting glycemia 385734842 Active 2017 Not Available [facility] 0 20:05:24 Steatosi s of liver 409918506 Active 2017 Not Available [facility] 0 20:05:24 Essentia l hyperten casey 58853272 Active 2022 ANN WILDER [address] [place], [address], [facility] 3 11:21:04 Pain of bilatera l knee joints 11786573919 4104 Active 2022 ANN WILDER [address] [place], [address], [facility] 3 11:25:12 Chondrom alacia of left patella 86061439450 9106 Active 2022 ANN WILDER [address] [place], [address], [facility] 3 11:25:45 Pain of right knee joint 88416163990 4100 Active 2022 ANN WILDER [address] [place], [address], [facility] 3 15:30:22 Pain of left knee joint 08904929425 4107 Active 2022 ANN WILDER [address] [place], [address], [facility] 3 15:30:31 Renal insuffic iency 800503391 Active 2023 Nick Fountain DO [address] [place], [address], [facility] 4 14:50:10 Acute urinary tract infectio n 456394951 Active 2023 ANN WILDER [address] [place], [address], [facility] 4 14:11:06 Kidney stone 37181928 Active 2023 ANN WILDER [address] [place], [address], [facility] 4 14:12:11 Oh hematuri a 503214068 Active 2023 ANN WILDER [address] [place], [address], [facility] 4 09:50:19 Fear of flying 909175061 Active 2023 ANN WILDER [address] [place], [address], [facility] 4 10:27:10 Large prostate 605135882 Active 2023 ANN WILDER [address] [place], [address], [facility] 4 14:16:21 Problem Notes None recorded. Procedures Surgical History Date Name Laterality Status Provider Name and Address Organization Details Recorded Time 6 Colonoscopy completed Joana Hoover [facility] 04/22/2018 10:36:22 Imaging Results None [...] propionate 50 mcg/actuati on nasal spray,suspe nsion [place] 4 sprays every day by intranasa l [...] Available Not Available Not Available Fluzone High-Dose 1893-2114 (PF) 180 mcg/0.5 mL intramuscul ar syringe 10/15 completed Not Available Not Available Not Available Shingrix (PF) 50 mcg/0.5 mL intramuscul ar suspension, kit PHARMACIS T ADMINISTE RED IMMUNIZAT ION ADMINISTE RED AT TIME OF DISPENSIN G 08/12 completed Not Available Not Available Not Available Fluzone High-Dose 4604-7124 (PF) 180 mcg/0.5 mL intramuscul ar syringe 04/22 completed Not Available Not Available Not Available Fluzone High-Dose 2018- (PF) 180 mcg/0.5 mL intramuscul ar syringe [...] and Address Organization Details Last Updated DateTime 173.99 cm 31.2 kg/m2 71436.2 9 g 64 /min 97 % 97 % 152 mm[Hg] 84 mm[Hg] Jeni Nguyễn [facility] 11:00:55 Social History Question Answer Notes LastModified by Organizat ion Details LastModified Time Tobacco Smoking Status Former Smoker Not Available [facility] 03/12/2020 03:36:24 What Was The Date Of Your Most Recent Tobacco Screening? 02/28/2024 [email or web address] Information not available 02/28/2024 Do You Or [...] split virus, quadrivalent, preservative 01/21/20 21 completed Duy brown [facility] 01/20/2021 13:07:24 COVID-19, mRNA, LNP-S, PF, 30 mcg/0.3 mL dose 02/18/20 21 completed Nick Fountain, DO [address] [place], [address], [facility] 02/18/2021 08:27:41 COVID-19, mRNA, LNP-S, PF, 30 mcg/0.3 mL dose 08/15/19 21 completed Erica Parks null, [facility] 04/11/2021 16:38:50 COVID-19, mRNA, LNP-S, PF, 30 mcg/0.3 mL dose 08/20/19 22 completed Joana Hoover null, [facility] 08/19/2021 14:09:15 Influenza, split virus, quadrivalent, preservative 02/25/20 18 completed Not Available [facility] 01/23/2020 20:05:24 COVID-19, mRNA, LNP-S, PF, 30 mcg/0.3 mL dose 02/17/20 22 completed Joana Hoover null, [facility] 02/17/2022 08:27:09 Influenza, split virus, quadrivalent, preservative 02/17/20 22 completed Joana Hoover null, [facility] 02/17/2022 08:27:26 influenza, unspecified formulation 02/23/20 23 completed Duy Fountain null, [facility] 02/22/2023 11:06:13 SARS-COV-2 (COVID-19) vaccine, UNSPECIFIED 02/23/20 23 [facility] 11:06:45 COVID-19, mRNA, LNP-S, PF, 50 mcg/0.5 mL 01/19/20 24 completed Jeni Nguyễn null, [facility] 01/19/2024 15:33:44 influenza, unspecified formulation 01/19/20 24 completed Jeni Nguyễn null, [facility] 01/19/2024 15:34:57 Respiratory syncytial virus (RSV), unspecified 03/31/20 24 completed Nick Fountain, [address], [place], [address], [facility] 04/01/2024 08:50:01 Pneumococcal conjugate PCV 13 02/25/20 18 completed Not Available [facility] 01/23/2020 20:05:24 Influenza, split virus, quadrivalent, preservative 02/03/20 19 completed Not Available [facility] 01/23/2020 20:05:24 Tdap 12/12/19 20 completed Not Available [facility] 01/23/2020 20:05:24 pneumococcal polysaccharide PPV23 12/14/19 20 completed Not Available [facility] 01/23/2020 20:05:24 zoster, unspecified formulation 12/14/19 20 completed Not Available [facility] 01/23/2020 20:05:24 Influenza, split virus, quadrivalent, preservative 01/30/20 20 completed Brooke brown [facility] 01/30/2020 11:57:11 zoster, unspecified formulation 02/22/20 20 completed Nick Fountain, DO [address], [place], [address], [facility] 02/22/2020 20:05:57 COVID-19, mRNA, LNP-S, PF, 30 mcg/0.3 mL dose 07/20/19 21 completed Erica Gencarelle stephanie [facility] 04/11/2021 16:38:30 Past Encounters Encounter ID Performer Location Encounter Start Date Encounter Closed Date Diagnosis/Indication Diagnosis SNOMED-CT Code Diagnosis ICD10 Code Diagnosis Note [id number] ANN WILDER [facility] [address] [address] 02/14/2024 10:43:48 02/15/2024 08:24:49 Acute urinary tract infection 678874822 N10 send out urine and set up with CT as the KUB was negative and urine has been negative?k idney stones vs infection vs malignancy Depression screening 171 855497 Z13.31 SCREENING NEGATIVE Gastroesop hageal reflux disease 686866513 K21.9 needs refill Oh hematuria 84725249 [address] Health Concerns Section Related Observation LastModified by Organization Detai ls LastModified Time None Recorded Concern Status LastModified by Organization Details LastModified Time None Recorded Payers Encounter Date Sequence Insurance Name Policy Number Policy Mirza Covered Member ID Mirza Member ID Guarantor Name 02/14/2024 1 [place] (MEDICARE REPLACEMENT PPO) [id number] Oh Perry [id number] Oh Perry 02/14/2024 2 [id number] Oh Perry [id number] Oh Perry Notes Date Note Type Note Provider Name a nd Address Organization Details Recorded Time 02/14/2024 text/html c/o clots in urine the patient has been having ongoing clots for the past 5 mos, three episodes, notes oh hematuria and blood clots, cannot exclude possible kidney stones, XR KUB was negative, improved with cipro and had no issuesstarted yesterday and has lessened today agreed to CT abd+pelv w/wo contrast to determine cause of the bleeding will fu with patient after imaging ANN WILDER [address] [place] [address], [place], [address], [facility] 02/14/2024 11:27:28
--- OUTSIDE RECORDS SUMMARY | 2024-05-16 15:40 | XMS_ITS | Data Portability ---
Author Organization [facility], [facility] Address [address] [place] [address] Assessment No assessment recorded. Plan of Treatment Reminders Order Date Submit Date Provider Last Modified By Organization Details Last Modified Time Details Appointments None record ed. Lab None record ed. Referral None record ed. Procedures None record ed. Surgeries None record ed. Imaging None record ed. Medication Orders None record ed. Patient TargetsNo targets recorded. Patient InstructionsNo instructions recorded. Reason for Referral None Reported. Results Created Date Observation Date Name Description Value Unit Range Abnormal Flag Note LastModifiedBy Organization Detail LastModifiedTime Result Notes None recorded. Procedures Surgical History Date Name Laterality Status Provider Name and Address Organization Details Recorded Time 03/10/2016 Pepito - EGD [address], [address], [facility] [place] 03/10/2016 10:52:32 Imaging Results None recorded. Procedure Notes None recorded. Medical Equipment None Reported. Medications Name Sig Start Date Stop Date Status Note LastModified by Organization Details LastModified Time amoxicillin 500 mg capsule active Not Available Not Available N ot Available ibuprofen 800 mg tablet active Not Available Not Available No t Available omeprazole 40 mg capsule,delayed release active Not Available Not Available Not Available simvastatin 40 mg tablet active Not Available Not Available No t Available levothyroxine 88 mcg tablet active Not Available Not Availabl e Not Available sertraline 50 mg tablet active Not Available Not Available No t Available atenolol 50 mg tablet active Not Available Not Available Not Available finasteride 5 mg tablet active Not Available Not Available No t Available chlorhexidine gluconate 0.12 % mouthwash active Not Available Not Available Not Available fenofibrate 54 mg tablet active Not Available Not Available No t Available GaviLyte-G 236 gram-22.74 gram-6.74 gram-5.86 gram oral solution active Not Available Not Availabl e Not Available Fluzone High-Dose 8984-2755 (PF) 180 mcg/0.5 mL intramuscular syringe active Not Available Not Available Not Available Vitals None Recorded Social History None recorded. Functional Status None recorded. Mental Status None recorded. Family History Nothing Reported. Medical History No medical history recorded. Past Encounters Encounter ID Performer Location Encounter Start Date Encounter Closed Date Diagnosis/Indication Diagnosis SNOMED-CT Code Diagnosis ICD10 Code Diagnosis Note [id number] Johny Beyer [facility], [address] [address] 03/10/2016 09:29:46 03/10/2016 13:19:16 Health Concerns Section Related Observation LastModified by Organization Detai ls LastModified Time None Recorded Concern Status LastModified by Organization Details LastModified Time None Recorded Advance Directives Directive None Recorded Payers Encounter Date Sequence Insurance Name Policy Number Policy Mirza Covered Member ID Mirza Member ID Guarantor Name 03/10/2016 1 [place] (MEDICARE REPLACEMENT PPO) [id number] Oh Perry [id number] Oh Perry 03/10/2016 2 [place] [employer] Oh Perry [id number] Oh Perry
== END 2024-05-16 14:14 | disposition home or self-care (01) ==
PROVIDERS: PCP Internal Medicine; Visit Provider Urology
DX: Z13.9 Encounter for screening, unspecified (principal)

== ENCOUNTER → 2024-05-16 13:15 | Outpatient (BNVA) | payer MEDICARE, SELFPAY | PROVIDERS: PCP Internal Medicine; Visit Provider Urology | DX: N40.1 Benign prostatic hyperplasia with lower urinary tract symptoms (principal); R31.0 Gross hematuria; N13.8 Other obstructive and reflux uropathy; R35.0 Frequency of micturition | CPT/HCPCS: 51798; 81003 ==

== ENCOUNTER 2024-06-20 13:57 | Outpatient (AMB) | payer MEDICARE, SELFPAY ==
--- NOTE | 2024-06-20 14:00 | A.OFFVIS_ITS ---
Intake Visit Reasons: Cysto(Hematuria) Intake Note: Patient is present for Cystoscopy Urology Medication:ALFUZOSIN,TADALAFIL Antibiotic Allergy:NONE Blood Thinner:NONE Lot:[id number] Exp:03/13/27 Auriculotherapist Required: No Allergies No Known Allergies Allergy (Verified 06/20/24 14:00) HPI Comments Details: Oh is a pleasant male. He is a patient of Dr. Grace. He is seen for the following urologic conditions - lower urinary tract symptoms - erectile dysfunction Here for follow-up cystoscopy Prior episode gross hematuria 04/02 CT scan with enlarged prostate Has been on combination alfuzosin and tadalafil Regrowth prostate right side with calcification causing hematuria Recommend touch up GreenLight laser Lower Urinary Tract Symptoms - GreenLight laser 05/31 PSA stable 2.2 Current visit is for further evaluation of, lower urinary tract symptoms, predominate obstructive symptoms. Current treatment includes - 05/31 GreenLight laser prostate Prostate Symptom Score 06/26 Mild (0-8), Bother 2 07/25 , Mild (0-8), Bother 2 08/27 , Mild (0-8), Bother 3. Symptoms include 08/27 , and are progressing, weak stream, nocturia (>2). Prior Prostate Score mild. PSA 11/20 8.4 - TRUS negative, December 2014 4.6 07/25 2.4, 07/26 1.9, 08/27 2.5, 01/27 2.5 Free 0.7 - 01/28 2.5, 01/29 2.2 Prostate volume 90 gm on US. - 04/02 ct 5.2 X 5.2 X 7.2 - 100GM prostate Testing at next visit will include Prostate Symptom Score, uroflow, bladder scan. Treatment plan 12 month follow-up [facility] Medical History BPH (benign prostatic hyperplasia) COVID-19 vaccine series completed Elevated PSA Erectile dysfunction GERD (gastroesophageal reflux disease) HTN (hypertension) Hyperlipidemia Hypothyroid Renal mass Surgical History History of surgery Social History Are you a primary direct care professional to a significant other at home: No Do you presently have visiting nurse or other home services: No Patient Tobacco Use Status: Former Tobacco user Tobacco use type: Cigarette Review of Systems Const Denies chills and Denies fever(s) Card Reports no additional complaints and Denies syncope Resp Denies cough GI Denies abdominal pain and Denies heartburn Reports as per HPI and Denies change in libido Neuro Denies syncope Psych Denies change in libido Endo Denies change in libido Physical Exam Const General: cooperative, healthy appearing, comfortable and no acute distress Orientation/consciousness: patient oriented x3 HEENT Face and sinus: Yes normal facial exam Mouth: moist mucous membranes Neck Neck: Yes normal visual inspection, Yes full ROM and Yes trachea midline Chest Chest palpation & inspection: normal inspection of the chest Resp Effort & Inspection: normal respiratory effort, able to speak in complete sentences and no respiratory distress GI Inspection: Yes normal to inspection Back/Spine/Pelvis Cervical Spine: normal cervical lordosis Thoracic/Lumbar Spine: thoracic and lumbar spine normal to inspection Skin General skin exam: no rashes or lesions noted Neuro General: patient oriented x3, gait normal, tone normal and moves all extremities Extrem General: Yes normal to inspection and Yes capillary refill normal Office Procedures Cystoscopy Consent Discussed risk and benefit or proposed procedure with the patient. Information consent for procedure given to the patient. Discussed technical aspects, risks, benefits and alternatives in full. Addressed all of the patient's questions and concerns regarding the procedure. The patient demonstrated knowledge and understanding. They wish to proceed with this procedure. Preparation The patient was prepped in the usual manner. A resource protection specialist was present and in the room. Genitalia was prepped with betadine solution in a sterile manner. Lidocaine Jelly 2% was placed into the urethra and 16Fr flexible Olympus cystoscope was inserted into the meatus after adequate lubrication. Procedure Cystoscopy performed using a disposable Urovue digital 16 Mongolian cystoscope. Meatus circumcised Urethra anterior and posterior urethra normal Prostatic Urethra right lateral lobe regrowth with calcification Bladder examination with retroflexion of cystoscope Bladder Orifices normal shape and position Bladder Capacity median Trabeculations grade 2/3 Cellule Formation yes Diverticulum Formation - Mucosal Erythema - Bladder Tumor - [id number]-[id number] DISPOSABLE SCOPE URO-G FLEXIBLE SCOPE Procedure code (CPT) selection complete Office Meds lidocaine HCl 2 % mucosal jelly in applicator Performing Provider: Sanjeev Vance MD Performing Location: [facility] Administered by: Melida Nicole RN on 06/20/24 14:25 Dose Route Admin Location Dispensed Lot Number Expiration Date [employer] Consultant 10 mL intra-urethral 10 mL nitrofurantoin monohydrate/macrocrystals 100 mg capsule Performing Provider: Sanjeev Vance MD Performing [facility] Administered by: Melida Nicole RN on 06/20/24 14:25 Dose Route Admin Location Dispensed Lot Number Expiration Date [employer] Consultant 100 mg PO 1 cap Assessment & Plan Assessment & Plan (1) Gross hematuria: Code(s): R31.0 - Gross hematuria Category: Medical (2) BPH w urinary obs/LUTS: Code(s): N40.1 - Benign prostatic hyperplasia with lower urinary tract symptoms; N13.8 - Other obstructive and reflux uropathy Category: Medical Plan Risks, benefits and alternatives to therapy were discussed. These include but are not limited to infection, bleeding, damage to local organs and tissues, need for further interventions. Anesthetic risks regarding cardiac arrhythmia, blood clots, and potential mortality were discussed. The patient understands the typical recovery time and the outpatient nature of the procedure. After consideration of these risks the patient gives full informed consent and they wish to move ahead with the procedure. - redo GreenLight laser Orders: Orders AMB Urinalysis Automated Today Z13.9 - Encounter for screening, unspecified AMB Cystoscopy Today N13.8 - Other obstructive and reflux uropathy, N40.1 - Benign prostatic hyperplasia with lower urinary tract symptoms, R31.0 - Gross hematuria, R97.20 - Elevated prostate specific antigen [PSA] Medications: Discontinued naproxen Discontinued Reason: Doctor's Order 500 mg PO BID 7 days PRN 14 tabs 0RF pain sulfamethoxazole-trimethoprim 400-80 mg (Bactrim) Discontinued Reason: Doctor's Order 1 tab PO DAILY 10 tabs 0RF tramadol Discontinued Reason: Doctor's Order 50 mg PO Q6H PRN 14 tabs 0RF pain (scale score 4-6) Patient Instructions: This note is constructed using voice recognition software. While every effort has been made to ensure accuracy director of software development errors may have been included. Imaging studies, laboratory and physical exam results were discussed and reviewed in detail. No major barriers to patient understanding were identified. An opportunity to ask questions regarding the treatment plan was provided. All questions were answered. The patient expressed understanding and agreement with the above treatment plan. The patient is aware they should contact our office by phone for worsening of their current condition or the appearance of new urologic symptoms. Compliance is encouraged with any medications and followup testing that is ordered. It is a privilege to participate in the urologic care of your patient. If you have any questions or concerns regarding treatment for the above conditions, or other urologic issues, please do not hesitate to contact me. The office telephone contact is [phone]. Sincerely, Dr Sanjeev Vance MD, [facility] - Urology Compassionate Specialist Care for the Genitourinary System Coding Level of Care Code Est Pt Level 4 (38217) Diagnoses Gross hematuria R31.0 BPH w urinary obs/LUTS N40.1; N13.8 CPT Codes Cystoscopy - CPT: 63102-Puigcqaplb ([id number])
--- OUTSIDE RECORDS SUMMARY | 2024-06-20 14:59 | XMS_ITS | Data Portability ---
Author Organization [facility], [facility] Address [address] [place] [address] Assessment No assessment recorded. Plan of Treatment [...] Details Recorded Time 03/10/2016 [place] - EGD [address], [address], [facility] 03/10/2016 10:52:32 Imaging Results None recorded. Procedure [...] Not Availabl e Not Available Fluzone High-Dose [id number] (PF) 180 mcg/0.5 mL intramuscular syringe active Not Available Not Available Not Available Vitals None Recorded Social History None recorded. Functional Status None recorded. Mental Status None recorded. Family History Nothing Reported. Medical History No medical history recorded. Past Encounters Encounter ID Performer Location Encounter Start Date Encounter Closed Date Diagnosis/Indication Diagnosis SNOMED-CT Code Diagnosis ICD10 Code Diagnosis Note [id number] Johny Beyer [facility], [address] [address] 03/10/2016 09:29:46 03/10/2016 13:19:16 Health Concerns Section Related Observation LastModified by Organization Detai ls LastModified Time None Recorded Concern Status LastModified by Organization Details LastModified Time None Recorded Advance Directives Directive None Recorded Payers Encounter Date Sequence Insurance Name Policy Number Policy Mirza Covered Member ID Mirza Member ID Guarantor Name 03/10/2016 1 [place]MEDICARE [place]EMENT PPO) [id number] Oh Perry [id number] Oh Perry 03/10/2016 2 [place] [employer] Oh Perry [id number] Oh Perry
--- OUTSIDE RECORDS SUMMARY | 2024-06-20 14:59 | XMS_ITS | Data Portability ---
Author Organization [facility], Home Service Address [address] [place] [address] Assessment Encounter Date Assessment Date Assessment LastModified by Organization Details LastModified Time 04/27/2023 04/27/2023 [id number] [place] [id number] (FILLER AND TRIMMER) [place] MODERATE MUST MEET 2 OUT OF 3 ELEMENTS: PROBLEMS, DATA OR RISK ELEMENT 1: PROBLEMS ADDRESSED 1 OR MORE CHRONIC ILLNESS WITH EXACERBATION OR 2 OR MORE STABLE CHRONIC ILLNESSES OR 1 UNDIAGNOSED NEW PROBLEM OR 1 ACUTE ILLNESS W/SYMPTOMS OR 1 ACUTE COMPLICATED INJURY ELEMENT 2: DATA MUST MEET 1 OF 3 CATEGORIES CATEGORY 1: REVIEW OF PRIOR EXTERNAL NOTES, REVIEW OF RESULTS, ORDERING OF EACH TEST, ASSESSMENT REQUIRING INDEPENDENT HISTORIAN OR CATEGORY 2: INDEPENDENT INTERPRETATION OF TESTS BY ANOTHER PHYSICIAN OR SPECIALIST OR CATEGORY 3: DISCUSSION OF MGT OR TEST INTERPRETATION W/EXTERNAL PHYSICIAN OR SPECIALIST ELEMENT 3: RISK RISK OF COMPLICATIONS AND/OR MORBIDITY OR MORTALITY OF PATIENT MANAGEMENT PROVIDER MUST THOROUGHLY DOCUMENT EACH ELEMENT THAT IS COVERED Not available 04/27/2023 13:37:03 08/30/2023 08/30/2023 [id number] [place] [id number] (FILLER AND TRIMMER) [place] MODERATE MUST MEET 2 OUT OF 3 ELEMENTS: PROBLEMS, DATA OR RISK ELEMENT 1: PROBLEMS ADDRESSED 1 OR MORE CHRONIC ILLNESS WITH EXACERBATION OR 2 OR MORE STABLE CHRONIC ILLNESSES OR 1 UNDIAGNOSED NEW PROBLEM OR 1 ACUTE ILLNESS W/SYMPTOMS OR 1 ACUTE COMPLICATED INJURY ELEMENT 2: DATA MUST MEET 1 OF 3 CATEGORIES CATEGORY 1: REVIEW OF PRIOR EXTERNAL NOTES, REVIEW OF RESULTS, ORDERING OF EACH TEST, ASSESSMENT REQUIRING INDEPENDENT HISTORIAN OR CATEGORY 2: INDEPENDENT INTERPRETATION OF TESTS BY ANOTHER PHYSICIAN OR SPECIALIST OR CATEGORY 3: DISCUSSION OF MGT OR TEST INTERPRETATION W/EXTERNAL PHYSICIAN OR SPECIALIST ELEMENT 3: RISK RISK OF COMPLICATIONS AND/OR MORBIDITY OR MORTALITY OF PATIENT MANAGEMENT PROVIDER MUST THOROUGHLY DOCUMENT EACH ELEMENT THAT IS COVERED Not available 08/30/2023 14:49:06 02/28/2024 02/28/2024 Patient presente d to office [...] Time Details Appointments FOLLOW UP 15 2024 11:15A M ANN WILDER Not available Not available Not available FOLLOW UP 15 2024 10:[address] FOUNTAIN Not available Not available Not available MEDICARE ANNUAL WELLNESS 2024 11:30A M DR FOUNTAIN Not available Not available Not available Lab CMP, serum or plasma 2023 024 [facility] (Outpatient), [address] [place] [address], [id number], 08/30/2023 14:53:25 lipid panel, blood 2023 024 [facility] (Outpatient), [address] [place] [address], [id number], 08/30/2023 14:53:25 TSH, serum or plasma 2023 024 [facility] (Outpatient), [address] [place] [address], [id number], 08/30/2023 14:53:26 urinalysi s, dipstick 2023 024 [facility], [address] [facility], [address], [place], [address], 10/20/2023 14:21:11 urinalysi s complete, reflex culture 2023 024 [facility], [address] [place] [address], [place], [address], 10/21/2023 11:31:34 urinalysi s, dipstick 2023 [facility], [address] [facility], [address], [place], [address], 02/14/2024 10:56:57 urinalysi s complete, reflex culture 2023 [facility], [address] [place] [address], [place], [address], 02/16/2024 11:34:20 cytology, urine 2023 [facility], [address] [place] [address], [address], 03/01/2024 11:13:58 CMP, serum or plasma 2023 [facility] (Outpatient), [address] [place] [address], [id number], 02/28/2024 18:29:13 lipid panel, blood 2023 [facility] (Outpatient), [address] [place] [address], [id number], 02/28/2024 13:53:46 hemoglobi n, gastroint estinal, stool 2023 [facility] (Outpatient), [address] [place] [address], [id number], 02/28/2024 13:53:46 CBC w/ auto diff 2023 024 [facility] (Outpatient), [address] [place] [address], [id number], 02/28/2024 17:43:17 CMP, serum or plasma [facility] [address] [place], [address], 02/28/2024 13:53:46 Referral None recorded. Procedures None recorded. Surgeries None recorded. Imaging XR, kidney + ureter + bladder 2023 KAYLIN Not available 10/24/2023 01:01:49 CT, abdomen + pelvis, w/wo contrast 2023 hrubner Not available 02/16/2024 09:06:25 CT, abdomen + pelvis, w/o contrast - estephania please 2023 [facility] Scheduling, [address] [place], [address], 02/29/2024 08:28:21 Medication Orders Cipro 500 mg tablet [address] [facility], [address] [place], [address], 02/28/2024 13:23:58 ciproflox acin 500 mg tablet 2023 024 [facility], [address] [place], [address], 02/28/2024 13:26:05 omeprazol e 40 mg capsule,d elayed release 2023 [facility], [address] [place], [address], 02/14/2024 11:21:13 Patient TargetsNo targets recorded. Patient Instructions Encounter Date Encounter Id Patient Instructions Last Modified By Organization Details Last Modified Time 08/30/2023 [id number] hypothyroidism: care instructions Not available 08/30/2023 14:51:57 02/28/2024 [id number] blood in the urine: care instructions Not [...] Abnormal Flag Note LastModifiedBy Organization Detail LastModifiedTime 10/20/19 24 10/20/2023 urina lysis , dipst ick Leukocytes Modera te Not Available [facility] Internal [address], [place], [address], 10/20/2023 14:13:42 10/20/19 24 10/20/2023 urina lysis , dipst ick Nitrite negati ve Not Available [address], [place], [address], 10/20/2023 14:13:42 10/20/19 24 10/20/2023 urina lysis , dipst ick Urobilinogen .2 Not Available [facility] [address] [facility] [address] [facility] [address], [place], [address], 10/20/2023 14:13:42 10/20/19 24 10/20/2023 urina lysis , dipst ick Protein Trace Not Available [address], [place], [address], 10/20/2023 14:13:42 10/20/19 24 10/20/2023 urina lysis , dipst ick pH 6.0 Not Available [address], [place], [address], 10/20/2023 14:13:42 10/20/19 24 10/20/2023 urina lysis , dipst ick Blood Small Not Available [facility] [address], [place], [address], 10/20/2023 14:13:42 10/20/19 24 10/20/2023 urina lysis , dipst ick Specific [facility] 1.010 Not Available [facility] [address] [facility] [address], [place], [address], 10/20/2023 14:13:42 10/20/19 24 10/20/2023 urina lysis , dipst ick Ketone Negati ve Not Available [facility] [address] [facility] [address], [place], [address], 10/20/2023 14:13:42 10/20/19 24 10/20/2023 urina lysis , dipst ick Bilirubin Negati ve Not Available [facility] [address] [facility] [address], [place], [address], 10/20/2023 14:13:42 10/20/19 24 10/20/2023 urina lysis , dipst ick Glucose Negati ve Not Available [facility] [address] [facility] [address], [place], [address], 10/20/2023 14:13:42 10/20/1910/20/2023 urina lysis , dipst ick Appearance Slight ly Cloudy Not Available [facility] [address] [facility] [address], [place], [address], 10/20/2023 14:13:42 10/20/1910/20/2023 urina lysis , dipst ick Color Yellow Not Available [facility] [address] [facility] [address], [place], [address], 10/20/2023 14:13:42 02/14/2002/14/2024 urina lysis , dipst ick Leukocytes Negati ve Not Available [facility] [address] [facility] [address], [place], [address], 02/14/2024 10:53:56 02/14/2002/14/2024 urina lysis , dipst ick Nitrite negati ve Not Available [facility] Internal [facility] [address], [place], [address], 02/14/2024 10:53:56 02/14/2002/14/2024 urina lysis , dipst ick Urobilinogen .2 Not Available [facility] [address], [place], [address], 02/14/2024 10:53:56 02/14/2002/14/2024 urina lysis , dipst ick Protein Negati ve Not Available [address], [place], [address], 02/14/2024 10:53:56 02/14/2002/14/2024 urina lysis , dipst ick pH 6.0 Not Available [address], [place], [address], 02/14/2024 10:53:56 02/14/2002/14/2024 urina lysis , dipst ick Blood Large Not Available [facility] [address], [place], [address], 02/14/2024 10:53:56 02/14/2002/14/2024 urina lysis , dipst ick Specific [facility] 1.010 Not Available [facility] [address], [place], [address], 02/14/2024 10:53:56 02/14/2002/14/2024 urina lysis , dipst ick Ketone Negati ve Not Available [facility] [address], [place], [address], 02/14/2024 10:53:56 02/14/20 24 02/14/2024 urina lysis , dipst ick Bilirubin Negati ve Not Available [facility] [address] [facility] [address], [place], [address], 02/14/2024 10:53:56 02/14/20 24 02/14/2024 urina lysis , dipst ick Glucose Negati ve Not Available [facility] [address] [facility] [address], [place], [address], 02/14/2024 10:53:56 02/14/20 24 02/14/2024 urina lysis , dipst ick Appearance Clear Not Available [facility] [address], [place], [address], 02/14/2024 10:53:56 02/14/2002/14/2024 urina lysis , dipst ick Color Yellow Not Available [facility] [address], [place], [address], 02/14/2024 10:53:56 10/24/19 24 10/21/2023 XR, kidne y + urete r + bladd er No observ ation record ed. [facility] [address] [facility], [place], [address], 10/25/2023 09:49:59 03/17/2003/17/2024 CT, abdom en + pelvi s, w/o contr ast No observ ation record ed. [facility] (Medical Records) [address] [place], [address], 03/17/2024 14:15:44 Result Notes None recorded. 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 964791150 Active 2020 Nick Fountain DO [address] [place], [address], [facility] [place] 1 16:40:19 Hypercho lesterol emia 23181360 Active 2017 Not Available [facility] 0 20:05:24 Atherosc lerosis Active 2017 Not Available [facility] 0 20:05:24 Divertic ulitis 424205839 Active 2017 Not Available [facility] 0 20:05:24 Polyp of colon 79396617 Active 2017 hyperplas tic Not Available [facility] 0 20:05:24 Cyst of kidney 983576843 Active 2017 Not Available [facility] 0 20:05:24 Gastriti s 6154989 Active 2017 Not Available [facility] 0 20:05:24 Dugan' s esophagu s 530758561 Active 2017 Not Available [facility] 0 20:05:24 Gastroes ophageal reflux disease 312098941 Active 2017 Not Available [facility] 0 20:05:24 Hypothyr oidism 89626265 Active 2017 Not Available [facility] 0 20:05:24 Prostate specific antigen above referenc e range 009678118 Active 2017 Not Available [facility] 0 20:05:24 Impaired fasting glycemia 485661511 Active 2017 Not Available [facility] 0 20:05:24 Steatosi s of liver 567233300 Active 2017 Not Available [facility] 0 20:05:24 [facility]ia l hyperten casey 64585693 Active 2022 ANN WILDER [address] [place], [address], [facility] [place], operated [facility] 3 11:21:04 Pain of bilatera l knee joints 63558979710 4104 Active 2022 ANN WILDER [address] [place], [address], [facility] [place], operated [facility] 3 11:25:12 Chondrom alacia of left patella 33130892951 9106 Active 2022 ANN WILDER [address] [place], [address], [facility] [place], operated [facility] 3 11:25:45 Pain of right knee joint 78159541114 4100 Active 2022 ANN WILDER [address] [place], [address], [facility] [place], operated [facility] 3 15:30:22 Pain of left knee joint 38489859526 4107 Active 2022 ANN WILDER [address] [place], [address], [facility] [place], operated [facility] 3 15:30:31 Renal insuffic iency 324712521 Active 2023 Nick Fountain DO [address] [place], [address], [facility] [place], operated [facility] 4 14:50:10 Acute urinary tract infectio n 051101207 Active 2023 ANN WILDER [address] [place], [address], [facility] [place], operated [facility] 4 14:11:06 Kidney stone 49020905 Active 2023 ANN WILDER [address] [place], [address], [facility] [place], operated [facility] 4 14:12:11 Oh hematuri a 559169061 Active 2023 ANN WILDER [address] [place], [address], [facility] [place], operated [facility] 4 09:50:19 Fear of flying 505691365 Active 2023 ANN WILDER [address] [place], [address], [facility] [place], operated [facility] 4 10:27:10 Large prostate 816361650 Active 2023 ANN WILDER [address] [place], [address], [facility] [place], operated [facility] 4 14:16:21 Problem Notes None recorded. Procedures Surgical History Date Name Laterality Status Provider Name and Address Organization Details Recorded Time 6 Colonoscopy completed Joana Hoover [facility] 04/22/2018 10:36:22 Imaging Results Imaging Date Name Status LastModified by Organiz ation Details LastModified Time 10/21/2023 XR, kidney + ureter + bladder completed [facility] [address] [place], [address], 10/25/2023 09:49:59 03/17/2024 CT, abdomen + pelvis, w/o contrast completed [facility] (Medical Records) [address] [place], [address], 03/17/2024 14:15:44 Procedure Notes None recorded. Medical Equipment None [...] propionate 50 mcg/actuati on nasal spray,suspe nsion [place] 4 sprays every day by intranasa l [...] Available Not Available fenofibrate 54 mg tablet Take 1 tablet by mouth once daily 2024 active Not Available Not Available Not Avai lable Prevnar 13 (PF) 0.5 mL intramuscul ar syringe 04/22 completed Not Available Not Available Not Available Fluzone High-Dose 0631-8876 (PF) 180 mcg/0.5 mL intramuscul ar syringe 10/15 completed Not Available Not Available Not Available Shingrix (PF) 50 mcg/0.5 mL intramuscul ar suspension, kit PHARMACIS T ADMINISTE RED IMMUNIZAT ION ADMINISTE RED AT TIME OF DISPENSIN G 08/12 completed Not Available Not Available Not Available Fluzone High-Dose 2030-2213 (PF) 180 mcg/0.5 mL intramuscul ar syringe [...] Details Last Updated DateTime 4 173.99 cm 31.3 kg/m2 70137.8 1 g 65 /min 95 % 95 % 132 mm[Hg] 78 mm[Hg] Jeni Nguyễn [facility] 4 14:25:26 Date Recorded Body height Body mass index (BMI) Body weight Heart rate Oxygen saturation Oxygen saturation in Arterial blood by Pulse oximetry Systolic blood pressure Diastolic blood pressure Provider Name and Address Organization Details Last Updated DateTime 4 173.99 cm 31.3 kg/m2 07092.8 1 g 59 /min 98 % 98 % 140 mm[Hg] 80 mm[Hg] Samantha Smith [facility] 4 13:56:51 Date Recorded Body height Body mass index (BMI) Body weight Heart rate Oxygen saturation Oxygen saturation in Arterial blood by Pulse oximetry Systolic blood pressure Diastolic blood pressure Provider Name and Address Organization Details Last Updated DateTime 4 173.99 cm 31.2 kg/m2 02729.2 9 g 64 /min 97 % 97 % 152 mm[Hg] 84 mm[Hg] Jeni Nguyễn [facility] 4 11:00:55 Date Recorded Body height Body mass index (BMI) Body weight Heart rate Oxygen saturation Oxygen saturation in Arterial blood by Pulse oximetry Systolic blood pressure Diastolic blood pressure Provider Name and Address Organization Details Last Updated DateTime 4 173.99 cm 30.9 kg/m2 27583.0 3 g 58 /min 95 % 95 % 128 mm[Hg] 70 mm[Hg] Felice Milwaukee [facility] 4 13:23:39 Social History Question Answer Notes LastModified by Organizat ion Details LastModified Time Tobacco Smoking Status Former Smoker Not Available [facility] 03/12/2020 03:36:24 What Was The Date Of [...] quadrivalent, preservative 01/21/20 21 completed Duy brown [facility] 01/20/2021 13:07:24 COVID-19, mRNA, LNP-S, PF, 30 mcg/0.3 mL dose 02/18/20 21 completed Nick Fountain, DO [address] [place] [address], [address] 02/18/2021 08:27:41 COVID-19, mRNA, LNP-S, PF, 30 mcg/0.3 mL dose 08/15/19 21 completed Erica brown [facility] 04/11/2021 16:38:50 COVID-19, mRNA, LNP-S, PF, 30 mcg/0.3 mL dose 08/20/19 22 completed Joana Hoover [facility] 08/19/2021 14:09:15 Influenza, split virus, quadrivalent, preservative 02/25/20 18 completed Not Available [facility] 01/23/2020 20:05:24 COVID-19, mRNA, LNP-S, PF, 30 mcg/0.3 mL dose 02/17/20 22 completed Joana Hoover null, [facility] 02/17/2022 08:27:09 Influenza, split virus, quadrivalent, preservative 02/17/20 22 completed Joana Hoover null, [facility] 02/17/2022 08:27:26 influenza, unspecified formulation 02/23/20 23 completed Duy Fountain null, [facility] 02/22/2023 11:06:13 SARS-COV-2 (COVID-19) vaccine, UNSPECIFIED 02/23/20 23 completed Duy Fountain null, [facility] 02/22/2023 11:06:45 COVID-19, mRNA, LNP-S, PF, 50 mcg/0.5 mL 01/19/20 24 completed Jeni Nguyễn [facility] 01/19/2024 15:33:44 influenza, unspecified formulation 01/19/20 24 [facility] 01/[facility]24 15:34:57 Respiratory syncytial virus (RSV), unspecified 03/31/20 24 completed Nick Fountain DO [address] [place] [address], [address] 04/01/2024 08:50:01 Pneumococcal conjugate PCV 13 02/25/20 18 completed Not Available [facility] 01/23/2020 20:05:24 Influenza, split virus, quadrivalent, preservative 02/03/20 19 completed Not Available [facility] 01/23/2020 20:05:24 Tdap 12/12/19 20 completed Not Available [facility] 01/23/2020 20:05:24 pneumococcal polysaccharide PPV23 12/14/19 20 completed Not Available [facility] 01/23/2020 20:05:24 zoster, unspecified formulation 12/14/19 20 completed Not Available [facility] 01/23/2020 20:05:24 Influenza, split virus, quadrivalent, preservative 01/30/20 20 completed Brooke Lopez null, [facility] 01/30/2020 11:57:11 zoster, unspecified formulation 10/15/20 20 completed Nick Fountain DO [address] [place], [address], [facility] [place] 02/22/2020 20:05:57 COVID-19, mRNA, LNP-S, PF, 30 mcg/0.3 mL dose 07/20/19 21 completed Erica brown [facility] 04/11/2021 16:38:30 Past Encounters Encounter ID Performer Location Encounter Start Date Encounter Closed Date Diagnosis/Indication Diagnosis SNOMED-CT Code Diagnosis ICD10 Code Diagnosis Note [id number] Nick Fountain [facility] [address] [facility] [address] 10/15/2017 10:30:20 10/15/2017 11:06:39 Hypercholesterolemia 54930900 E78.00 LDL cholest was 107 excellent on 40mg statin Hypothyroidism 49109455 E03.9 tsh is also stable Impaired f asting glycemia 192977995 R73.01 a1c is 6.0 and steady as last fall no issues Prostate s pecific antigen above reference range 320981607 R97.20 seeing urology and is good until next july DR Vance [id number] Nick Fountain [facility] [address] [facility] [place] [address] 04/22/2018 10:25:27 04/22/2018 11:24:15 Impaired fasting glycemia 997649840 R73.01 a1c was 6.0 and steady last fall no issues so will be rechecking today Hypothyroidism 94496457 E03.9 tsh is needed Hypercholesterolemia 136 62731 E78.00 LDL cholest was 107 excellent on 40mg statin on last lab work so will be trecheckin g Hepatitis C screening 41 7759125 Z11.59 Environmental allergy 42 9499577 T78.49XA [id number] Nick Fountain [facility] [address] [facility], [place] [address] 09/06/2018 09:16:48 09/06/2018 09:39:34 Abdominal aortic aneurysm screening 689670286 Z13.6 Impaired f asting glycemia 903138177 R73.01 a1c was 6.0 and steady last fall no issues so will be rechecking today Hypothyroidism 08603495 E03.9 tsh is needed Hypercholesterolemia 136 26467 E78.00 LDL cholest was 107 excellent on 40mg statin on last lab work so will be ghada richards [id number] Nick Fountain [facility] [address] [facility] [address] 12/14/2018 10:55:16 12/14/2018 14:48:12 Hypothyroidism 52628884 E03.9 tsh is needed next lab Impaired f asting glycemia 370261346 R73.01 a1c was 6.3 and steady last spring no issues so will be rechecking in the fall Hypercholesterolemia 136 59759 E78.00 LDL cholest was 107 excellent on 40mg statin on last lab work so will be ghada richards Hepatitis C screening 41 2835303 Z11.59 [facility] 14000911 L30.0 [id number] August Kadie [facility] [address] [facility] [address] 03/03/2019 14:51:02 03/03/2019 15:56:37 Essential hypertension 86149407 I10 not well controlled no exercising as much as is typical for him will have check bp Hypothyroidism 73110776 E03.9 has orders for labs for upcoming visit Impaired f asting glycemia 260187533 R73.01 has orders for labs for upcoming visit advised to work on diet [id number] Nick Fountain [facility] [address] [facility] [address] 04/14/2019 10:13:45 04/14/2019 10:38:04 Impaired fasting glycemia 308830959 R73.01 a1c was 6.0 and steady Discussed more exercise Will recheck in spring Hypothyroidism 13309081 E03.9 TSH normal will follow Gastroesop hageal reflux disease [id number] K21.0 Going for [place] endo in [place] Well controlled currently Essential hypertension 17353168 I10 Well controlled with new lisinopril Will continue to follow [id number] Nick Fountain [facility] [address] [facility],[place] [address] 09/01/2019 10:52:20 09/01/2019 11:45:55 Dugan's esophagus [id number] K22.70 no symptoms and doing well Impaired f asting glycemia 356767035 R73.01 a1c is 6.5 was 6.0 told pt any highr and this will be classified as diabetes Discussed more exercise Will recheck in summer Hypothyroidism 29533304 E03.9 TSH was normal will follow next lab Hypercholesterolemia 136 75075 E78.00 LDL cholest was 107 excellent on 40mg statin on last lab work so will be ghada richards Steatosis of liver 1007 K76.0 [place] [address]64 Nick Fountain [facility] [address] [facility],[place] [address] 12/08/2019 11:09:57 12/08/2019 12:44:33 Hypercholesterolemia 17283808 E78.00 LDL cholest was 107 excellent on 40mg statin on last lab work so will be ghada richards Gastroesop hageal reflux disease 169685906 K21.0 Going for [place] endo [place] Well controlled currently Steatosis of liver 1007 K76.0 will chk on cmp Dugan's esophagus 3029 59148 K22.70 no symptoms and doing well Hypothyroidism 27719261 E03.9 TSH was normal will follow next lab Impaired f asting glycemia 112146406 R73.01 a1c is 6.4 was 6.5 was 6.0 told pt any higher and this will be classified as diabetes Discussed more exercise Will recheck in fall warned him he is close to developing diabetes 83250 ANN WILDER [facility] [address] [facility],[place] [address] 02/07/2020 16:02:38 02/07/2020 16:47:16 Right Achilles tendinitis [id number] 18000 M76.61 will treat conservati vely for now with APAP and advil interchang eably also using ice and heat resting area, not to much activity or strain not a rupture 07812 Nick Fountain [facility] [address] [facility],[place] [address] 04/30/2020 11:21:25 04/30/2020 13:29:29 Active or passive immunization 845332541 Z23 will ask him to get shingles Adult heal th examination 864425321 Z00.01 will get fbw is doing ok overall could stand to lose some weight whcih he agrees nio a1c is done yet 64634 Nick Fountain [facility] [address] [facility],[place] [address] 08/12/2020 10:21:45 08/12/2020 11:27:13 Hypercholesterolemia 50717532 E78.00 LDL cholest was 107 excellent on 40mg statin on last lab work so will be ghada richards Dugan's esophagus 3029 41703 K22.70 no symptoms and doing well Hypothyroidism 08507015 E03.9 TSH was normal will follow next lab Impaired f asting glycemia 446878874 R73.01 a1c is now 6.1 and was 6.4 was 6.5 was 6.0 told pt any higher and this will be classified as diabetes Discussed more exercise he must drink more water and needs to keep an eye on this and he needs to get better hydration Will recheck in fall warned him he is close to developing diabetes Renal insufficiency 7231 55739 N28.9 increase water ubtake we will stop the lisinopril rechk lab in 2 months 84044 Nick Fountain [facility] [address] [facility],[place] [address] 10/28/2020 10:16:48 10/28/2020 11:06:46 Hypercholesterolemia 97172873 E78.00 last check of LDL cholest was 107 excellent on 40mg statin on last lab work so will be ghada g Impaired f asting glycemia 297355814 R73.01 a1c is still 6.1 and was 6.1 6.0 6.1 6.4 was 6.5 was 6.0 told pt any higher and this will be classified as diabetes Discussed more exercise he must drink more water and needs to keep an eye on this and he needs to get better hydration Will recheck in fall warned him he is close to developing diabetes Hypothyroidism 37749587 E03.9 TSH was normal will follow next lab Nummular eczema 74592253 L30.0 62447 Nick Fountain [facility] [address] [facility],[place] [facility] [address] 04/29/2021 10:14:32 04/30/2021 15:15:07 Dugan's esophagus 922439868 K22.70 no symptoms and doing well Gastroesop hageal reflux disease 133281180 K21.9 seems stable and is ok overall Hypothyroidism 75553955 E03.9 TSH was normal will follow next lab Benign pro static hyperplasia with outflow obstruction 537567452 N40.1 Impaired f asting glycemia 431893554 R73.01 a1c is still 6.1 and was 6.1 6.0 6.1 6.4 was 6.5 was 6.0 told pt any higher and this will be classified as diabetes Discussed more exercise he must drink more water and needs to keep an eye on this and he needs to get better hydration Will recheck in fall warned him he is close to developing diabetes 91013 Nick Fountain [facility] [address] [facility], [place] [address] 11/19/2021 15:17:17 11/19/2021 15:44:28 Impaired fasting glycemia 581916332 R73.01 a1c is still 6 and prior was was 6.1 6.0 6.1 6.4 was 6.5 was 6.0 told pt any higher and this will be classified as diabetes Discussed more exercise he must drink more water and needs to keep an eye on this and he needs to get better hydration Will recheck in fall warned him he is close to developing diabetes Hypothyroidism 35656535 E03.9 TSH was normal will follow next lab Gastroesop hageal reflux disease 179687797 K21.9 seems stable and is ok overall Hypercholesterolemia 136 78820 E78.00 last check of LDL cholest was 107 excellent on 40mg statin on last lab work so will be rechecking Advance care planning 71 3940114 Z71.89 done 31712 Nick Fountain [facility] [address] [facility],[place] [facility] [address] 04/13/2022 10:25:01 04/13/2022 11:56:10 Hypercholesterolemia 58802089 E78.00 last check of LDL cholest was 107 excellent on 40mg statin on last lab work so will be rechecking Hypothyroidism 26755226 E03.9 tsh is still sl elevated at 12 t4 is ok at 0.9pt would like to see how he does with the larger dose another few monthshe will let us know if he notices any increase in fatiguewil l rechk lab in spring Impaired f asting glycemia 388806159 R73.01 a1c is 5.3!!!!!!! ! PRIOR was 6 and prior was was 6.1 6.0 6.1 6.4 was 6.5 was 6.0 told pt any higher and this will be classified as diabetes Discussed more exercise he must drink more water and needs to keep an eye on this and he needs to get better hydration Will recheck in springdarin g much better 44462 ANN WILDER [facility] [address] [facility],[place] [address] 08/18/2022 11:11:13 08/18/2022 12:23:43 Essential hypertension 80166696 I10 increase metoprolol from 50 to 100 mg due to BP levels both here and at dentist Pain of bi lateral knee joints 2635328784 44974 M25.562 will start with XR's farrukh kneespossi ble meniscus tear vs chondromal acia Chondromal acia of left patella 9859199531 23506 M22.42 left > rightcont with ice, can take advil QD Hypothyroidism 41610458 E03.8 need BW prior to appt with MB Impaired f asting glycemia 206300364 R73.01 needs recheck bw Prostate s pecific antigen above reference range 819603912 R97.20 needs new lab work prior to appt with MB Hypercholesterolemia 136 32707 E78.2 [place] [address] Nick Fountain DO [facility] [address],[place] [address] 10/06/2022 13:19:29 10/06/2022 14:53:42 Essential hypertension 51788868 I10 Well controlled with metoprolol 100 Will continue to follow reviewed lab in detail Hypercholesterolemia 136 53180 E78.2 last check of LDL cholest was 107 excellent on 40mg statin on last lab work so will be rechecking Prostate s pecific antigen above reference range 013468792 R97.20 seeing urology and is good until next july DR Vance Impaired f asting glycemia 828337796 R73.01 a1c is 5.9 and doing great 5.3!!!!!!! ! PRIOR was 6 and prior was was 6.1 6.0 6.1 6.4 was 6.5 was 6.0 told pt any higher and this will be classified as diabetes Discussed more exercise he must drink more water and needs to keep an eye on this and he needs to get better hydration Will recheck in springdoin g much better Hypothyroidism 71266305 E03.8 tsh is excellentp t would like to see how he does with the larger dose another few monthshe will let us know if he notices any increase in fatiguewil l rechk lab in spring Advance care planning 71 2176753 Z71.89 done Chondromal acia of left patella 9688495202 11663 M22.42 offered cortisone inj he will consider in the fall [id number] Nick Fountain DO [facility] [address] [facility],[place] [address] 04/27/2023 08:25:48 04/27/2023 13:59:50 Essential hypertension 23568555 I10 Well controlled with metoprolol 100 as noted in the pastruns a bit higher in officeWill continue to follow reviewed lab in detail Hypercholesterolemia 136 55821 E78.2 last check of LDL cholest was 107 excellent on 40mg statin on last lab work so will be rechecking Hypothyroidism 41296527 E03.8 tsh is excellentp t would like to see how he does with the larger dose another few monthshe will let us know if he notices any increase in fatiguewil l rechk lab in spring Pain of bi lateral knee joints 0545270174 76527 M25.562 relates doing great with the diclofenac amazing we will cont this prn regimen Gastritis 4922708 K29.70 doinng great with omeprazole we will continue for now as he relates when forgets gets symptomati 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 but clearly use outweighs any risk at this point [id number] Nick Fountain DO [facility] [address] [facility],[place] [address] 08/30/2023 14:18:53 08/30/2023 15:05:04 Essential hypertension 25894246 I10 Well controlled with metoprolol 100 as noted in the pastruns a bit higher in officeWill continue to follow reviewed lab in detail Hypercholesterolemia 136 29873 E78.2 last check of LDL cholest was 107 excellent on 40mg statin on last lab work so will be rechecking Gastritis 5617253 K29.70 doinng great with omeprazole we will continue for now as he relates when forgets gets symptomati cdiscussed prison omeprazole use but clearly use outweighs any risk at this point Pain of bi lateral knee joints 1537088252 77986 M25.562 relates doing great with the diclofenac amazing we will cont this prn regimen Hypothyroidism 03522966 E03.8 tsh is excellent last lab will rechkpt would like to see how he does with the larger dose another few monthshe will let us know if he notices any increase in fatiguewil l rechk lab in spring Renal insufficiency 7231 56472 N28.9 increase water ubtake we will stop the lisinopril rechk lab in 2 months [id number] ANN WILDER [facility] [address], [place] [address] 10/20/2023 13:48:37 10/20/2023 15:41:29 Acute urinary tract infection 891390152 N10 start on ciprourine sent out for culturedip showed blood, could be from the infection or possible stone patient passed Kidney stone 86585008 N2 0.0 agreed to XR to check for stones [id number] [facility] [address] [facility] [address],[place] [address] 02/28/2024 13:16:06 02/28/2024 14:55:47 Adult health examination 880074061 Z00.01 will get fbw is doing ok overall could stand to lose some weight whcih he agrees nio a1c is done yet Screening for cardiovascular system disease 214787905 Z13.6 will chk lab Screening for malignant neoplasm of colon 055940895 Z12.11 Depression screening 171 220508 Z13.31 neg Oh hematuria 23730471 5 R31.0 given recurrence , will need cytology and CT scan cdh sched him foir late [id number] ANN WILDER [facility] [address],[place] [address] 02/14/2024 10:43:48 02/15/2024 08:24:49 Acute urinary tract infection 960335700 N10 send out urine and set up with CT as the KUB was negative and urine has been negative?k idney stones vs infection vs malignancy Depression screening 171 138465 Z13.31 SCREENING NEGATIVE Gastroesop hageal reflux disease 512057445 K21.9 needs refill Oh hematuria 50248819 [address] Health Concerns Section Related Observation LastModified by Organization Detai ls LastModified Time None Recorded Concern Status LastModified by Organization Details LastModified Time None Recorded Advance Directives Directive None Recorded Payers Encounter Date Sequence Insurance Name Policy Number Policy Mirza Covered Member ID Mirza Member ID Guarantor Name 04/27/2023 1 [place] PPO) [id number] Oh Perry [id number] Oh Perry 08/30/2023 1 [place]) [id number] Oh Perry [id number] Oh Perry 10/20/2023 1 [place] PPO) [id number] Oh Perry [id number] Oh Perry 02/14/2024 1 [place]) [id number] Oh Perry [id number] Oh Perry 02/14/2024 2 [place] [facility] Oh Perry [id number] Oh Perry 02/28/2024 1 [place] PPO) [id number] Oh Perry [id number] Oh Perry 02/28/2024 2 [place] [facility] Oh Perry [id number] Oh Perry Notes Date Note Type Note Provider Name and Address Organization Details Recorded Time 3 text/htm l patient is evaluated via tele/video assessment per patient consentduring current pandemicPatient is a __ year old {{male* female}} with a history of hypertension. Patient had been stable on medication until recently. Patient returns today for further evaluation. Patient denies lightheadedness or dizziness.MEDS- complaint, no ADRsDIET-compliantcompla int with low sugar, lean proteins, lots of veggies, low refined CHO, limits ETOH, doesn't use tobacco productsEXERCISE- does not exercise, recognizes the importance, struggles with motivationexercises regularly- typically:LIPIDS- at goalCMP- within normal limits here for a rechkbps doing okusing the diclofenac gel with good resultsnow using only prn Nick Fountain DO [address] [place], [address], [facility] [place] 04/27/2023 13:41:17 4 text/htm l Care Management - HypertensionReported bypatient.Self Care:not under emotional stress Severity:symptoms are improving; does not interfere with daily activities Associated Symptoms:no dizziness; no lightheadedness; no chest pain; no shortness of breath; no palpitations; no edema; no calf muscle cramps; no blurred vision; no confusion; no headaches; no fatigueNotes:no issue with meds here for rechkrelates that his knees are better with voltarenstates he has been doing well and bowlingknees are goodno cp no sobsome fatigue with exertionbowels bladder ok does wake up at night to pee but does drink fluids in eveningappetite darrell Fountain DO [address] [place], [address], [facility], [place], [facility] 08/30/2023 14:55:22 4 text/htm l c/o UTI patient reports burning sensation when he urinates for the past 4 to 5 daysnotes he did see some blood in the toilet bowl when he urinated at the time but it resolved after a dayreports urinating a blood clot vs stonegive context could have passed a stonewill set up with XR KUB because the patient has hx with prostate cancer will do the imagingrecent PSA was within normal limits denies fever at this time ANN WILDER [address] [place], [address], [facility], [place], [facility] 10/20/2023 14:21:43 4 text/htm l c/o clots in urine the patient has been having ongoing clots for the past 5 mos, three episodes, notes oh hematuria and blood clots, cannot exclude possible kidney stones, XR KUB was negative, improved with cipro and had no issuesstarted yesterday and has lessened today agreed to CT abd+pelv w/wo contrast to determine cause of the bleeding will fu with patient after imaging NAN WILDER [address] [place], [address], [facility], [place], [facility] 02/14/2024 11:27:28 4 text/htm l Medicare Annual Wellness VisitReported bypatient.Diet and Nutrition:healthy [...] no chills etc Nick Fountain, DO [address] [facility], [place], [address], [facility] 02/28/2024 13:58:53
== END 2024-06-20 14:45 | disposition home or self-care (01) ==
PROVIDERS: PCP Internal Medicine; Visit Provider Urology
DX: R31.0 Gross hematuria (principal); R97.20 Elevated prostate specific antigen [PSA]; N40.1 Benign prostatic hyperplasia with lower urinary tract symptoms; N13.8 Other obstructive and reflux uropathy; Z13.9 Encounter for screening, unspecified
CPT/HCPCS: 52000; 99214

== ENCOUNTER → 2024-06-20 13:57 | Outpatient (BNVA) | payer MEDICARE, SELFPAY | PROVIDERS: PCP Internal Medicine; Visit Provider Urology | DX: N40.1 Benign prostatic hyperplasia with lower urinary tract symptoms (principal); R31.0 Gross hematuria; N13.8 Other obstructive and reflux uropathy; R97.20 Elevated prostate specific antigen [PSA] | CPT/HCPCS: 52000; 81003; 99212 ==

== ENCOUNTER 2024-09-18 09:15 | Day surgery (SDC) | payer MEDICARE, SELFPAY ==
--- OUTSIDE RECORDS SUMMARY | 2024-08-22 10:25 | XMS_ITS | Data Portability ---
Author Organization [facility], Home Service Address [address] [place] [address] Assessment Encounter Date Assessment Date Assessment LastModified by Organization Details LastModified Time 08/30/2023 08/30/2023 [address] [place] [id number] (SALES EXPERT) MDM MODERATE MUST MEET 2 OUT OF 3 [...] reduce health risks and promote healthy living. [email or web address] Not available 02/09/2024 11:06:57 08/14/2024 08/14/2024 [address] [place] [address] (SALES EXPERT) MDM MODERATE MUST MEET 2 OUT OF 3 [...] EACH ELEMENT THAT IS COVERED Not available 08/14/2024 10:40:33 Plan of Treatment Reminders Order Date Submit Date Provider Last Modified By Organization Details Last Modified Time Details Appointments MEDICARE ANNUAL WELLNESS 2024 11:30A M DR FOUNTAIN Not available Not available Not available Lab CBC 2024 025 [facility] (Outpatient), [address] [place] [address], [id number], 08/14/2024 10:43:24 lipid panel, blood 2024 025 [facility] (Outpatient), [address] [place] [address], [id number], 08/14/2024 10:43:24 CMP, serum or plasma 2024 025 [facility] (Outpatient), [address] [place] [address], [id number], 08/14/2024 10:43:24 PSA, serum or plasma 2024 025 [facility] (Outpatient), [address] [place] [address], [id number], 08/14/2024 10:43:24 TSH, serum or plasma 2024 025 [facility] (Outpatient), [address] [place] [address], [id number], 08/14/2024 10:43:24 cytology, urine 2023 024 [facility], [address] [place] [address], [place], [address], 03/01/2024 11:13:58 CMP, serum or plasma 2023 [facility] (Outpatient), [address] [place] [address], [id number], 02/28/2024 18:29:13 lipid panel, blood 2023 [facility] (Outpatient), [address] [place] [address], [id number], 02/28/2024 13:53:46 hemoglobi n, gastroint estinal, stool 2023 [facility] (Outpatient), [address] [place] [address], [id number], 02/28/2024 13:53:46 CBC w/ auto diff 2023 [facility] (Outpatient), [address] [place] [address], [id number], 02/28/2024 17:43:17 CMP, serum or plasma 2023 [facility] (Outpatient), [address] [place] [address], [id number], 02/28/2024 13:53:46 urinalysi s, dipstick 2023 [facility], [address], [address], [place], [address], 02/14/2024 10:56:57 urinalysi s complete, reflex culture 2023 024 [facility], [address] [facility], [place], [address], 02/16/2024 11:34:20 urinalysi s, dipstick 2023 024 [facility], [address], [place], [address], 10/20/2023 14:21:11 urinalysi s complete, reflex culture 2023 024 [facility], [address] [place] [address], [id number], 10/21/2023 11:31:34 CMP, serum or plasma 2023 024 [facility] (Outpatient), [address] [place] [address], [id number], 08/30/2023 14:53:25 lipid panel, blood 2023 024 [facility] (Outpatient), [address] [place] [address], [id number], 08/30/2023 14:53:25 TSH, serum or plasma 2023 024 [facility] (Outpatient), [address] [place] [address], [id number], 08/30/2023 14:53:26 Referral None recorded. Procedures None recorded. Surgeries None recorded. Imaging CT, abdomen + pelvis, w/o contrast - estephania please 2023 024 [facility] Central Scheduling, [address] [place] [address], [address], 02/29/2024 08:28:21 CT, abdomen + pelvis, w/wo contrast 2023 024 [email or web address] Not available 02/16/2024 09:06:25 XR, kidney + ureter + bladder 2023 024 [email or web address] Not available 10/24/2023 01:01:49 Medication Orders ciproflox acin 500 mg tablet 10/2023 [facility], [address] [place], [address], 02/28/2024 13:26:05 omeprazol e 40 mg capsule,d elayed release 2023 [facility], [address] [place], [address], 02/14/2024 11:21:13 Cipro 500 mg tablet 2023 [email or web address] [facility], [address] [place], [address], 02/28/2024 13:23:58 Patient TargetsNo targets recorded. Patient Instructions Encounter Date Encounter Id Patient Instructions Last Modified By Organization Details Last Modified Time 08/30/2023 [id number] hypothyroidism: care instructions Not available 08/30/2023 14:51:57 02/28/2024 [id number] blood in the urine: care instructions Not [...] Abnormal Flag Note LastModifiedBy Organization Detail LastModifiedTime 10/20/1910/20/2023 urina lysis , dipst ick Leukocytes Modera te Not Available [facility] [address], [place], [address], 10/20/2023 14:13:42 10/20/19 24 10/20/2023 urina lysis , dipst ick Nitrite negati ve Not Available [facility] [address], [place], [address], 10/20/2023 14:13:42 10/20/19 24 10/20/2023 urina lysis , dipst ick Urobilinogen .2 Not Available [facility] [address], [place], [address], 10/20/2023 14:13:42 10/20/19 24 10/20/2023 urina lysis , dipst ick Protein Trace Not Available [facility] [address], [place], [address], 10/20/2023 14:13:42 10/20/19 24 10/20/2023 urina lysis , dipst ick pH 6.0 Not Available [address], [place], [address], 10/20/2023 14:13:42 10/20/19 24 10/20/2023 urina lysis , dipst ick Blood Small Not Available [address], [place], [address], 10/20/2023 14:13:42 10/20/19 24 10/20/2023 urina lysis , dipst ick Specific [place] 1.010 Not Available [address], [place], [address], 10/20/2023 14:13:42 10/20/19 24 10/20/2023 urina lysis , dipst ick Ketone Negati ve Not Available [address], [place], [address], 10/20/2023 14:13:42 10/20/19 24 10/20/2023 urina lysis , dipst ick Bilirubin Negati ve Not Available [facility] [address], [place], [address], 10/20/2023 14:13:42 10/20/19 24 10/20/2023 urina lysis , dipst ick Glucose Negati ve Not Available [facility] [address], [place], [address], 10/20/2023 14:13:42 10/20/19 24 10/20/2023 urina lysis , dipst ick Appearance Slight ly Cloudy Not Available [facility] [address], [place], [address], 10/20/2023 14:13:42 10/20/19 24 10/20/2023 urina lysis , dipst ick Color Yellow Not Available [address], [place], [address], 10/20/2023 14:13:42 02/14/2002/14/2024 urina lysis , dipst ick Leukocytes Negati ve Not Available [address], [place], [address], 02/14/2024 10:53:56 02/14/2002/14/2024 urina lysis , dipst ick Nitrite negati ve Not Available [address], [place], [address], 02/14/2024 10:53:56 02/14/2002/14/2024 urina lysis , dipst ick Urobilinogen .2 Not Available [facility] [address], [place], [address], 02/14/2024 10:53:56 02/14/2002/14/2024 urina lysis , dipst ick Protein Negati ve Not Available [address], [place], [address], 02/14/2024 10:53:56 02/14/2002/14/2024 urina lysis , dipst ick pH 6.0 Not Available [facility] [address], [place], [address], 02/14/2024 10:53:56 02/14/2002/14/2024 urina lysis , dipst ick Blood Large Not Available [facility] [address], [place], [address], 02/14/2024 10:53:56 02/14/2002/14/2024 urina lysis , dipst ick Specific [place] 1.010 Not Available [facility] [address], [place], [address], 02/14/2024 10:53:56 02/14/2002/14/2024 urina lysis , dipst ick Ketone Negati ve Not Available [facility] [address], [place], [address], 02/14/2024 10:53:56 02/14/2002/14/2024 urina lysis , dipst ick Bilirubin Negati ve Not Available [facility] [address], [place], [address], 02/14/2024 10:53:56 02/14/2002/14/2024 urina lysis , dipst ick Glucose Negati ve Not Available [facility] [address], [place], [address], 02/14/2024 10:53:56 02/14/2002/14/2024 urina lysis , dipst ick Appearance Clear Not Available [facility] [address], [place], [address], 02/14/2024 10:53:56 02/14/2002/14/2024 urina lysis , dipst ick Color Yellow Not Available [facility] [address], [place], [address], 02/14/2024 10:53:56 10/24/19 24 10/21/2023 XR, kidne y + urete r + bladd er No observ ation record ed. [email or web address] [facility] [address] [facility], [place], [address], 10/25/2023 09:49:59 03/17/20 24 03/17/2024 CT, abdom en + pelvi s, w/o contr ast No observ ation record ed. [facility] (Medical Records) [address] [place] [address], [place], [address], 08/14/2024 10:35:29 Result Notes None recorded. 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 719193791 Active 2020 Nick Fountain DO [address] [facility], [place], [address], [facility] 1 16:40:19 Hypercho lesterol emia 36085411 Active 2017 Not Available [facility] 0 20:05:24 Atherosc lerosis Active 2017 Not Available [facility] 0 20:05:24 Divertic ulitis 643735895 Active 2017 Not Available [facility] 0 20:05:24 Polyp of colon 26049192 Active 2017 hyperplas tic Not Available [facility] 0 20:05:24 Cyst of kidney 652334124 Active 2017 Not Available [facility] 0 20:05:24 Gastriti s 4328223 Active 2017 Not Available [facility] 0 20:05:24 Dugan' s esophagu s 867034044 Active 2017 Not Available [facility] 0 20:05:24 Gastroes ophageal reflux disease 572131388 Active 2017 Not Available [facility] 0 20:05:24 Hypothyr oidism 45033800 Active 2017 Not Available [facility] 0 20:05:24 Prostate specific antigen above referenc e range 137771089 Active 2017 Not Available [facility] 0 20:05:24 Impaired fasting glycemia 144907174 Active 2017 Not Available [facility] 0 20:05:24 Steatosi s of liver 436434468 Active 2017 Not Available [facility] 0 20:05:24 Essentia l hyperten casey 92501214 Active 2022 ANN WILDER [address] [place], [address], [facility] 3 11:21:04 Pain of bilatera l knee joints 72337717172 4104 Active 2022 ANN WILDER [address] [place] [address], [address], [facility] 3 11:25:12 Chondrom alacia of left patella 45427518183 9106 Active 2022 ANN WILDER [address] [place] [address], [address], [facility] 3 11:25:45 Pain of right knee joint 96567851397 4100 Active 2022 ANN WILDER [address] [place] [address], [address], [facility] 3 15:30:22 Pain of left knee joint 72594761891 4107 Active 2022 ANN WILDER [address] [place] [address], [address], [facility] 3 15:30:31 Renal insuffic iency 845399287 Active 2023 Nick Fountain DO [address] [place], [address], [facility] 4 14:50:10 Acute urinary tract infectio n 616979885 Active 2023 ANN WILDER [address] [place], [address], [facility] 4 14:11:06 Kidney stone 84552755 Active 2023 ANN WILDER [address] [place] [address], [address], [facility] 4 14:12:11 Oh hematuri a 000874750 Active 2023 NAN WILDER [address] [place], [address], [facility] 4 09:50:19 Fear of flying 773515082 Active 2023 ANN WILDER [address] [place] [address], [address], [facility] 4 10:27:10 Large prostate 999329980 Active 2023 ANN WILDER [address] [place] [address], [address], [facility] 4 14:16:21 Problem Notes None recorded. Procedures Surgical History Date Name Laterality Status Provider Name and Address Organization Details Recorded Time 6 Colonoscopy completed Joana Hoover [facility] 04/22/2018 10:36:22 Imaging Results Imaging Date Name Status LastModified by Organiz ation Details LastModified Time 10/21/2023 XR, kidney + ureter + bladder completed [email or web address] [address], [place], [address], 10/25/2023 09:49:59 03/17/2024 CT, abdomen + pelvis, w/o contrast completed [facility] (Medical Records) [address] [facility], [place], [address], 08/14/2024 10:35:29 Procedure Notes None recorded. Medical Equipment None Reported. Allergies No known drug allergies Medications Name Sig Start Date Stop Date Status Note LastModified by Organization Details LastModified Time terazosin 5 mg capsule TAKE 1 CAPSULE BY MOUTH AT BEDTIME active Not Available Not Available No t Available nystatin 100,000 unit/gram topical ointment APPLY OINTMENT TOPICALLY TWICE TO THREE TIMES DAILY TO AFFECTED AREA(S) active Not Available Not Available No t Available metoprolol succinate ER 50 mg tablet,exte nded [...] propionate 50 mcg/actuati on nasal spray,suspe nsion [place] 4 sprays every day by intranasa l [...] completed Not Available Not Available Not Available alfuzosin ER 10 mg tablet,exte nded release 24 hr TAKE 1 TABLET BY MOUTH ONCE DAILY AFTER THE SAME MEAL DAILY AT BEDTIME active Not Available Not Available No t Available Adacel (Tdap Adolesn/Jesus lt)(PF)2 Lf-(2.5-5-3 -5)-5 Lf/0.5 mL IM syringe 08/12 completed Not Available Not Available Not Available fenofibrate 54 mg tablet TAKE 1 TABLET BY MOUTH ONCE DAILY active Not Available Not Available No t Available Prevnar 13 (PF) 0.5 mL intramuscul ar syringe 04/22 completed Not Available Not Available Not Available Fluzone High-Dose 5012-3700 (PF) 180 mcg/0.5 mL intramuscul ar syringe [...] Updated DateTime 4 173.99 cm 31.3 kg/m2 37996.8 1 g 65 /min 95 % 95 % 132 mm[Hg] 78 mm[Hg] Jeni Nguyễn [facility] 4 14:25:26 Date Recorded Body height Body mass index (BMI) Body weight Heart rate Oxygen saturation Oxygen saturation in Arterial blood by Pulse oximetry Systolic blood pressure Diastolic blood pressure Provider Name and Address Organization Details Last Updated DateTime 4 173.99 cm 31.3 kg/m2 77592.8 1 g 59 /min 98 % 98 % 140 mm[Hg] 80 mm[Hg] Samantha Smith [facility] 4 13:56:51 Date Recorded Body height Body mass index (BMI) Body weight Heart rate Oxygen saturation Oxygen saturation in Arterial blood by Pulse oximetry Systolic blood pressure Diastolic blood pressure Provider Name and Address Organization Details Last Updated DateTime 4 173.99 cm 31.2 kg/m2 81008.2 9 g 64 /min 97 % 97 % 152 mm[Hg] 84 mm[Hg] Jeni Nguyễn [facility] 4 11:00:55 Date Recorded Body height Body mass index (BMI) Body weight Heart rate Oxygen saturation Oxygen saturation in Arterial blood by Pulse oximetry Systolic blood pressure Diastolic blood pressure Provider Name and Address Organization Details Last Updated DateTime 4 173.99 cm 30.9 kg/m2 99712.0 3 g 58 /min 95 % 95 % 128 mm[Hg] 70 mm[Hg] Felice Coulter [facility] 4 13:23:39 Date Recorded Body height Heart rate Oxygen saturation Oxygen saturation in Arterial blood by Pulse oximetry Systolic blood pressure Diastolic blood pressure Provider Name and Address Organization Details Last Updated DateTime 5 173.99 cm 53 /min 98 % 98 % 142 mm[Hg] 78 mm[Hg] Samantha Smith [facility] 5 10:06:29 Social History Question Answer Notes LastModified by Organizat ion Details LastModified Time Tobacco Smoking Status Former Smoker Not Available [facility] 03/12/2020 03:36:24 What Was The Date Of Your Most Recent Tobacco Screening? 08/14/2024 [email or web address] Information not available 08/14/2024 Do You Or Have You Ever Used [...] quadrivalent, preservative 01/21/20 21 completed Duy brown [facility] 01/20/2021 13:07:24 COVID-19, mRNA, LNP-S, PF, 30 mcg/0.3 mL dose 02/18/20 21 completed Nick Fountain, DO [address] [facility], [place], [address], [facility] 02/18/2021 08:27:41 COVID-19, mRNA, LNP-S, PF, 30 mcg/0.3 mL dose 08/15/19 21 completed Erica brown [facility] 04/11/2021 16:38:50 COVID-19, mRNA, LNP-S, PF, 30 mcg/0.3 mL dose 08/20/19 22 [facility] 08/19/2021 14:09:15 Influenza, split virus, quadrivalent, preservative 02/25/20 18 completed Not Available [facility] 01/23/2020 20:05:24 COVID-19, mRNA, LNP-S, PF, 30 mcg/0.3 mL dose 02/17/20 22 completed Joana brown [facility] 02/17/2022 08:27:09 Influenza, split virus, quadrivalent, preservative 02/17/20 22 completed Joana Hoover [facility] 02/17/2022 08:27:26 influenza, unspecified formulation 02/23/20 23 [facility] 11:06:13 SARS-COV-2 (COVID-19) vaccine, UNSPECIFIED 02/23/20 23 completed Duy Fountain [facility] 02/22/2023 11:06:45 COVID-19, mRNA, LNP-S, PF, 50 mcg/0.5 mL 01/19/20 24 completed Jeni Nguyễn [facility] 01/19/2024 15:33:44 influenza, unspecified formulation 01/19/20 24 completed Jeni Nguyễn [facility] 01/19/2024 15:34:57 Respiratory syncytial virus (RSV), unspecified 03/31/20 24 completed Nick Fountain DO [address] [place] [address], [address], [facility] 04/01/2024 08:50:01 Pneumococcal conjugate PCV 13 02/25/20 18 completed Not Available [facility] 01/23/2020 20:05:24 Influenza, split virus, quadrivalent, preservative 02/03/20 19 completed Not Available [facility] 01/23/2020 20:05:24 Tdap 12/12/19 20 completed Not Available [facility] 01/23/2020 20:05:24 pneumococcal polysaccharide PPV23 12/14/19 20 completed Not Available [facility] 01/23/2020 20:05:24 zoster, unspecified formulation 12/14/19 20 completed Not Available [facility] 01/23/2020 20:05:24 Influenza, split virus, quadrivalent, preservative 01/30/20 20 [facility] 01/30/2020 11:57:11 zoster, unspecified formulation 02/22/20 20 completed Nick Fountain DO [address] [place] [address], [address], [facility] 02/22/2020 20:05:57 COVID-19, mRNA, LNP-S, PF, 30 mcg/0.3 mL dose 07/20/19 21 completed Erica Parks [facility] 04/11/2021 16:38:30 Past Encounters Encounter ID Performer Location Encounter Start Date Encounter Closed Date Diagnosis/Indication Diagnosis SNOMED-CT Code Diagnosis ICD10 Code Diagnosis Note [id number] Nick Fountain [facility] [address] [facility],[place] [address] 10/15/2017 10:30:20 10/15/2017 11:06:39 Hypercholesterolemia 61354663 E78.00 LDL cholest was 107 excellent on 40mg statin Hypothyroidism 55216858 E03.9 tsh is also stable Impaired f asting glycemia 763835089 R73.01 a1c is 6.0 and steady as last fall no issues Prostate s pecific antigen above reference range 257831992 R97.20 seeing urology and is good until next july DR Vance [id number] Nick Fountain [facility] [address] [facility], [place] [address] 04/22/2018 10:25:27 04/22/2018 11:24:15 Impaired fasting glycemia 016150692 R73.01 a1c was 6.0 and steady last fall no issues so will be rechecking today Hypothyroidism 63141513 E03.9 tsh is needed Hypercholesterolemia 136 84093 E78.00 LDL cholest was 107 excellent on 40mg statin on last lab work so will be trecheng richards Hepatitis C screening 41 7950828 Z11.59 Environmental allergy 42 1421162 T78.49XA [id number] Nick Fountain [facility] [address] [facility], [facility] [address] 09/06/2018 09:16:48 09/06/2018 09:39:34 Abdominal aortic aneurysm screening 798789322 Z13.6 Impaired f asting glycemia 058946970 R73.01 a1c was 6.0 and steady last fall no issues so will be rechecking today Hypothyroidism 28682594 E03.9 tsh is needed Hypercholesterolemia 136 59655 E78.00 LDL cholest was 107 excellent on 40mg statin on last lab work so will be trecarlosckin maurice [id number] Nick Fountain [facility] [address] [facility],[place] [address] 12/14/2018 10:55:16 12/14/2018 14:48:12 Hypothyroidism 12674796 E03.9 tsh is needed next lab Impaired f asting glycemia 440756637 R73.01 a1c was 6.3 and steady last spring no issues so will be rechecking in the fall Hypercholesterolemia 136 89123 E78.00 LDL cholest was 107 excellent on 40mg statin on last lab work so will be ghada richards Hepatitis C screening [address] [facility] 14162452 L30.0 [id number] August JOSE Engle [facility] [address] [facility],[place] [facility] [place] [address] 03/03/2019 14:51:02 03/03/2019 15:56:37 Essential hypertension 44000306 I10 not well controlled no exercising as much as is typical for him will have check bp Hypothyroidism 93965431 E03.9 has orders for labs for upcoming visit Impaired f asting glycemia 372318159 R73.01 has orders for labs for upcoming visit advised to work on diet [id number] Nick Fountain DO [facility] [address] [facility],[place]ina [facility] [address] 04/14/2019 10:13:45 04/14/2019 10:38:04 Impaired fasting glycemia 892730093 R73.01 a1c was 6.0 and steady Discussed more exercise Will recheck in spring Hypothyroidism 82226992 E03.9 TSH normal will follow Gastroesop hageal reflux disease 590084317 K21.0 Going for upper endo [place] Well controlled currently Essential hypertension 35107902 I10 Well controlled with new lisinopril Will continue to follow [id number] Nick Fountain DO [facility] [address] [facility] [address],[place] [address] 09/01/2019 10:52:20 09/01/2019 11:45:55 Dugan's esophagus 436587484 K22.70 no symptoms and doing well Impaired f asting glycemia 253597697 R73.01 a1c is 6.5 was 6.0 told pt any highr and this will be classified as diabetes Discussed more exercise Will recheck in summer Hypothyroidism 97918901 E03.9 TSH was normal will follow next lab Hypercholesterolemia 136 96992 E78.00 LDL cholest was 107 excellent on 40mg statin on last lab work so will be ghada richards Steatosis of liver 1007 K76.0 [place] cmp [id number] Nick Fountain, [facility] [address] [facility],[place] [address] 12/08/2019 11:09:57 12/08/2019 12:44:33 Hypercholesterolemia 82679476 E78.00 LDL cholest was 107 excellent on 40mg statin on last lab work so will be ghada richards Gastroesop hageal reflux disease 509762019 K21.0 Going for upper endo in [place] Well controlled currently Steatosis of liver 1007 K76.0 will chk on cmp Dugan's esophagus 3029 13166 K22.70 no symptoms and doing well Hypothyroidism 24863107 E03.9 TSH was normal will follow next lab Impaired f asting glycemia 737212037 R73.01 a1c is 6.4 was 6.5 was 6.0 told pt any higher and this will be classified as diabetes Discussed more exercise Will recheck in fall warned him he is close to developing diabetes [id number] ANN WILDER [facility] [address] [facility], [place] [address] 02/07/2020 16:02:38 02/07/2020 16:47:16 Right Achilles tendinitis [id number] 61451 M76.61 will treat conservati vely for now with APAP and advil interchang eably also using ice and heat resting area, not to much activity or strain not a rupture [id number] Nick Fountain DO [facility] [address] [facility],[place] [address] 04/30/2020 11:21:25 04/30/2020 13:29:29 Active or passive immunization 465770979 Z23 will ask him to get shingles Adult [facility] th examination 542622332 Z00.01 will get fbw is doing ok overall could stand to lose some weight whcih he agrees nio a1c is done yet 77515 Nick Fountain [facility] [address] [facility] [address],[place] [address] 08/12/2020 10:21:45 08/12/2020 11:27:13 Hypercholesterolemia 47642141 E78.00 LDL cholest was 107 excellent on 40mg statin on last lab work so will be trecheng g Dugan's esophagus 3029 16465 K22.70 no symptoms and doing well Hypothyroidism 77847801 E03.9 TSH was normal will follow next lab Impaired f asting glycemia 221057541 R73.01 a1c is now 6.1 and was 6.4 was 6.5 was 6.0 told pt any higher and this will be classified as diabetes Discussed more exercise he must drink more water and needs to keep an eye on this and he needs to get better hydration Will recheck in fall warned him he is close to developing diabetes Renal insufficiency 7231 60296 N28.9 increase water ubtake we will stop the lisinopril rechk lab in 2 months 77007 Nick Fountain, [facility] [address] [facility],[place] [address] 10/28/2020 10:16:48 10/28/2020 11:06:46 Hypercholesterolemia 12450790 E78.00 last check of LDL cholest was 107 excellent on 40mg statin on last lab work so will be trechebelindain g Impaired f asting glycemia 206076145 R73.01 a1c is still 6.1 and was 6.1 6.0 6.1 6.4 was 6.5 was 6.0 told pt any higher and this will be classified as diabetes Discussed more exercise he must drink more water and needs to keep an eye on this and he needs to get better hydration Will recheck in fall warned him he is close to developing diabetes Hypothyroidism 98455503 E03.9 TSH was normal will follow next lab Nummular eczema 59100503 L30.0 23756 Nick Fountain [facility] [address] [facility] [address],[place] [address] 04/29/2021 10:14:32 04/30/2021 15:15:07 Dugan's esophagus 967851503 K22.70 no symptoms and doing well Gastroesop hageal reflux disease 033920567 K21.9 seems stable and is ok overall Hypothyroidism 68003127 E03.9 TSH was normal will follow next lab Benign pro static hyperplasia with outflow obstruction 053425379 N40.1 Impaired f asting glycemia 444992771 R73.01 a1c is still 6.1 and was 6.1 6.0 6.1 6.4 was 6.5 was 6.0 told pt any higher and this will be classified as diabetes Discussed more exercise he must drink more water and needs to keep an eye on this and he needs to get better hydration Will recheck in fall warned him he is close to developing diabetes 36042 Nick Fountain [facility] [address] [facility],[place] [facility] [place] [address] 11/19/2021 15:17:17 11/19/2021 15:44:28 Impaired fasting glycemia 893935939 R73.01 a1c is still 6 and prior [...] he is close to developing diabetes Hypothyroidism 08282071 E03.9 TSH was normal will follow next lab Gastroesop hageal reflux disease 491318487 K21.9 seems stable and is ok overall Hypercholesterolemia 136 07545 E78.00 last check of LDL cholest was 107 excellent on 40mg statin on last lab work so will be rechecking Advance care planning 71 2396249 Z71.89 done 34165 Nick Fountain [facility] [address] [facility],[place] [facility] [place] [address] 04/13/2022 10:25:01 04/13/2022 11:56:10 Hypercholesterolemia 00377026 E78.00 last check of LDL cholest was 107 excellent on 40mg statin on last lab work so will be rechecking Hypothyroidism 50561631 E03.9 tsh is still sl elevated at 12 t4 is ok at 0.9pt would like to see how he does with the larger dose another few monthshe will let us know if he notices any increase in fatiguewil l rechk lab in spring Impaired f asting glycemia 749668539 R73.01 a1c is 5.3!!!!!!! ! PRIOR was 6 and prior was was 6.1 6.0 6.1 6.4 was 6.5 was 6.0 told pt any higher and this will be classified as diabetes Discussed more exercise he must drink more water and needs to keep an eye on this and he needs to get better hydration Will recheck in springdoin g much better 48129 ANN WILDER [facility] [address] [facility], [place] [address] 08/18/2022 11:11:13 08/18/2022 12:23:43 Essential hypertension 45606202 I10 increase metoprolol from 50 to 100 mg due to BP levels both here and at dentist Pain of bi lateral knee joints 7625234135 44519 M25.562 will start with XR's farrukh kneespossi ble meniscus tear vs chondromal acia Chondromal acia of left patella 7914473148 72359 M22.42 left > rightcont with ice, can take advil QD Hypothyroidism 06340524 E03.8 need BW prior to appt with MB Impaired f asting glycemia 807461082 R73.01 needs recheck bw Prostate s pecific antigen above reference range 186680644 R97.20 needs new lab work prior to appt with MB Hypercholesterolemia 136 74842 E78.2 [place] [address] Nick Fountain DO [facility] [address] [facility] [address],[place] [facility] [place] [address] 10/06/2022 13:19:29 10/06/2022 14:53:42 Essential hypertension 97398211 I10 Well controlled with metoprolol 100 Will continue to follow reviewed lab in detail Hypercholesterolemia 136 85784 E78.2 last check of LDL cholest was 107 excellent on 40mg statin on last lab work so will be rechecking Prostate s pecific antigen above reference range 280141227 R97.20 seeing urology and is good until next july DR Vance Impaired f asting glycemia 213092988 R73.01 a1c is 5.9 and doing great [...] recheck in springdoin g much better Hypothyroidism 20339585 E03.8 tsh is excellentp t would like to see how he does with the larger dose another few monthshe will let us know if he notices any increase in fatiguewil l rechk lab in spring Advance care planning 71 9458612 Z71.89 done Chondromal acia of left patella 6673614277 33416 M22.42 offered cortisone inj he will consider in the fall 216803 Nick Fountain DO [facility] [address] [facility],[place] [address] 04/27/2023 08:25:48 04/27/2023 13:59:50 Essential hypertension 63113114 I10 Well controlled with metoprolol 100 as noted in the pastruns a bit higher in [facility] continue to follow reviewed lab in detail Hypercholesterolemia 136 07726 E78.2 last check of LDL cholest was 107 excellent on 40mg statin on last lab work so will be rechecking Hypothyroidism 32382710 E03.8 tsh is excellentp t would like to see how he does with the larger dose another few monthshe will let us know if he notices any increase in fatiguewil l rechk lab in spring Pain of bi lateral knee joints 2293446478 50011 M25.562 relates doing great with the diclofenac amazing we will cont this prn regimen Gastritis 2148903 K29.70 doinng great with omeprazole we will continue for now as he relates when forgets gets symptomati 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 but clearly use outweighs any risk at this point [id number] Nick Fountain DO [facility] [address] [facility],[place] [address] 08/30/2023 14:18:53 08/30/2023 15:05:04 Essential hypertension 59516962 I10 Well controlled with metoprolol 100 as noted in the pastruns a bit higher in officeWill continue to follow reviewed lab in detail Hypercholesterolemia 136 49348 E78.2 last check of LDL cholest was 107 excellent on 40mg statin on last lab work so will be rechecking Gastritis 6494030 K29.70 doinng great with omeprazole we will continue for now as he relates when forgets gets symptomati cdiscussed correction omeprazole use but clearly use outweighs any risk at this point Pain of bi lateral knee joints 9084644607 82054 M25.562 relates doing great with the diclofenac amazing we will cont this prn regimen Hypothyroidism 48640539 E03.8 tsh is excellent last lab will rechkpt would like to see how he does with the larger dose another few monthshe will let us know if he notices any increase in fatiguewil l rechk lab in spring Renal insufficiency 7231 47599 N28.9 increase water ubtake we will stop the lisinopril rechk lab in 2 months [id number] ANN WILDER [facility] [address] [facility],[place] [address] 10/20/2023 13:48:37 10/20/2023 15:41:29 Acute urinary tract infection 770239884 N10 start on ciprourine sent out for culturedip showed blood, could be from the infection or possible stone patient passed Kidney stone 30623523 N2 0.0 agreed to XR to check for stones 604484 [facility] [address] [facility],[place] [address] 02/28/2024 13:16:06 02/28/2024 14:55:47 Adult health examination 555385471 Z00.01 will get fbw is doing ok overall could stand to lose some weight whcih he agrees nio a1c is done yet Screening for cardiovascular system disease 477163391 Z13.6 will chk lab Screening for malignant neoplasm of colon 530455399 Z12.11 Depression screening 171 150024 Z13.31 neg Oh hematuria 94189558 5 R31.0 given recurrence , will need cytology and CT scan cdh sched him foir late march [id number] ANN WILDER [facility] [address] [facility],[place] [address] 02/14/2024 10:43:48 02/15/2024 08:24:49 Acute urinary tract infection 247260387 N10 send out urine and set up with CT as the KUB was negative and urine has been negative?k idney stones vs infection vs malignancy Depression screening 171 Z13.31 SCREENING NEGATIVE Gastroesop hageal reflux disease 629987344 K21.9 needs refill Oh hematuria 99342246 [address] [id number] DO [facility] [address] [facility] [address] [facility] [address],[place] [address] 08/14/2024 09:55:19 08/14/2024 10:49:39 Benign prostatic hyperplasia with outflow obstruction 898391221 N40.1 overall is stable and following Essential hypertension 56297642 I10 Well controlled with metoprolol 100 as noted in the pastruns a bit higher in officeWill continue to follow reviewed lab in detail Hypercholesterolemia 136 30850 E78.2 last check of LDL cholest was 107 excellent on 40mg statin on last lab work so will be rechecking Hypothyroidism 23321282 E03.8 tsh is excellent last lab will rechkpt would like to see how he does with the larger dose another few monthshe will let us know if he notices any increase in fatiguewil l rechk lab in spring Depression screening 171 Z13.31 neg Health Concerns Section Related Observation LastModified by Organization Detai ls LastModified Time None Recorded Concern Status LastModified by Organization Details LastModified Time None Recorded Advance Directives Directive None Recorded Payers Encounter Date Sequence Insurance Name Policy Number Policy Mirza Covered Member ID Mirza Member ID Guarantor Name 08/30/2023 1 [place]MED[place] PPO) [id number] Oh Perry [id number] Oh Perry 10/20/2023 1 [place] PPO) [id number] Oh Perry [id number] Oh Perry 02/14/2024 1 [place] PPO) [id number] Oh Perry [id number] Oh Perry 02/14/2024 2 [place] [facility] Oh Perry [id number] Oh Perry 02/28/2024 1 [place]MED[place] PPO) [id number] Oh Perry [id number] Oh Perry 02/28/2024 2 [place] [facility] Oh Perry [id number] Oh Perry 08/14/2024 1 [place]MED[place] PPO) [id number] Oh Perry [id number] Oh Perry 08/14/2024 2 [place] [facility] Oh Perry [id number] Oh Perry Notes Date Note Type Note Provider Name and Address Organization Details Recorded Time 08/30/19 24 text/htm l Care Management - HypertensionReported bypatient.Self [...] but does drink fluids in eveningappetite darrell Fountain, [address] [place], [address], [facility] 08/30/2023 14:55:22 10/20/19 24 text/htm l c/o UTI patient reports burning [...] fever at this time ANN WILDER [address] [place], [address], [facility] 10/20/2023 14:21:43 10/07/20 24 text/htm l c/o clots in urine the [...] fu with patient after imaging ANN WILDER [address] [facility], [place], [address], [facility] 02/14/2024 11:27:28 02/28/20 24 text/htm l Medicare Annual Wellness VisitReported bypatient.Diet [...] and bilatno fevers no chills etc Nick Fountain DO [address] [place] [address], [address], [facility] 02/28/2024 13:58:53 08/15/19 25 text/htm l Care Management - Acquired HypothyroidismReported bypatient.Medication Education:understands administration; understands effect of concurrent medications; understands missed doses; understands consequences of noncompliance Associated Symptoms:no abnormal weight gain; no tiredness; no dry skin; no cold intolerance; no constipation; no diarrhea; no goiterCare Management - HyperlipidemiaReported bypatient.Control:usually well controlled; improving; at goal Complications:no coronary artery disease; no heart attack; no cardiovascular disease; no pancreatitis; no strokeCare Management - HypertensionReported bypatient.Self Care:not under emotional stress Severity:symptoms are improving; does not interfere with daily activities Associated Symptoms:no dizziness; no lightheadedness; no chest pain; no shortness of breath; no palpitations; no edema; no calf muscle cramps; no blurred vision; no confusion; no headaches; no fatigue here for rechk and is doing ok overallrelates that his bp med had initial light headednessbut this past and hes finehe has had a re growth of a small bladder mass and is going to have this removed by urology Nick Fountain DO [address] [place] [address], [address], [facility] 08/14/2024 10:42:42
--- OUTSIDE RECORDS SUMMARY | 2024-08-22 10:25 | XMS_ITS | Data Portability ---
Author Organization [facility], [facility] Address [address] [place] [address] Assessment No assessment recorded. Plan of Treatment [...] Details Recorded Time 03/10/2016 [place] - EGD [address], [address], [facility] 03/10/2016 10:52:32 Imaging Results None recorded. Procedure [...] Not Availabl e Not Available Fluzone High-Dose 2767-3159 (PF) 180 mcg/0.5 mL intramuscular syringe active Not Available Not Available Not Available Vitals None Recorded Social History None recorded. Functional Status None recorded. Mental Status None recorded. Family History Nothing Reported. Medical History No medical history recorded. Past Encounters Encounter ID Performer Location Encounter Start Date Encounter Closed Date Diagnosis/Indication Diagnosis SNOMED-CT Code Diagnosis ICD10 Code Diagnosis Note [id number] Johny Beyer [facility], [address] [address] 03/10/2016 09:29:46 03/10/2016 13:19:16 Health Concerns Section Related Observation LastModified by Organization Detai ls LastModified Time None Recorded Concern Status LastModified by Organization Details LastModified Time None Recorded Advance Directives Directive None Recorded Payers Encounter Date Sequence Insurance Name Policy Number Policy Mirza Covered Member ID Mirza Member ID Guarantor Name 03/10/2016 1 [place]MEDICARE [place] PPO) [id number] Oh Perry [id number] Oh Perry 03/10/2016 2 [place] [employer] Oh Perry [id number] Oh Perry
[2024-09-18] VITALS (8 sets, daily range): BP systolic 166–222; BP diastolic 67–88; PULSE 48–56; RESP 14–16; TEMP 36.2–36.4; O2SAT 94–98; BMI 30.4
[2024-09-18] MEDS: Lactated Ringers 1,000 ML 100 ML IVCONT (09:51)
--- NOTE | 2024-09-18 10:10 | MHC.SHP ---
Pre-Procedural Eval Section A - 24 Hr Update-Section A only Date of Service: 09/18/24 The patient is an INPATIENT: No Changes since office visit: No Cold of Flu in the past 2 weeks, No New Medical Problems, No Changes in Medication and No Patient answered all questions The patient has been examined within 24 hours of the surgical procedure. The History & Physical has been completed within 30 days and I have reviewed it.: No Section B - Complete if H&P > 30 days Chief Complaint: Benign prostatic hyperplasia with lower urinary tr Details of Present Illness: Revision laser prostatectomy Relevant Family History (Specify if Yes): No Relevant Social History: None Present Medications: see Short Stay Collaborative assessment Medical History: No relevant PMH History of Previous Operations: Relevant previous surgery/procedure and date(s) Allergies: Allergies Allergy/AdvReac Type Severity Reaction Status Date / Time No Known Allergies Allergy Verified 06/20/24 14:00 Review of Systems Sugical H&P ROS: Negative: Constitution, Cardiovascular, Respiratory, Neurological, Psychiatric, Hem-Onc, Allergic/Immunologic, Gastrointestinal, Genitourinary, Musculoskeletal, Integumentary, Endocrine and Eyes/Ears/Nose/Throat Exam Surgical H&P Exam: Normal: HEENT, Normal: Heart, Normal: Lungs, Normal: Extremities, Normal: Abdomen, Normal: Skin and Normal: Neurological Plan Diagnosis/Plan: Unchanged (Revision laser prostatectomy) I have reviewed the history and physical and performed a pertinent physical examination on my patient. No changes have occurred unless specified. Time Spent With Patient Time: Total time managing care of this patient today ____ minutes.
--- NOTE | 2024-09-18 10:13 | HO.ANESPROP2 ---
Documented by User: Génesis Aguilar NP 09/15/24 10:10 HPI - Anesthesia Eval Consult details Narrative: 79yo M for Laser Ablation Prostate w/Green Light s/p same 2021 COUNTS INCLUDE 234 BEDS AT THE [facility] Active Problems Active Problems: All Active Problems Gross hematuria (Acute) Erectile 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 (Acute) BPH w urinary obs/LUTS (Acute) Elevated PSA (Acute) Past Medical History Medical History (Updated 09/14/24 @ 11:51 by Melida Acevedo RN) Hypothyroid Renal mass HTN (hypertension) Hyperlipidemia GERD (gastroesophageal reflux disease) Erectile dysfunction BPH (benign prostatic hyperplasia) Elevated PSA Family History Family history of problems with anesthesia: No Surgical History Surgical History (Updated 09/14/24 @ 11:51 by Melida Acevedo RN) Hx of prostate biopsy History of prostate surgery History of tonsillectomy and adenoidectomy History of Problems with Anesthesia: No Social History Social History Are you a primary child care centre manager to a significant other at home: No Do you presently have visiting nurse or other home services: No Patient Tobacco Use Status: Former Tobacco user Tobacco use type: Cigarette Use of substances other than those prescribed or required for medical reasons: No Are you DNR?: No Advance Directives: No Advance Directives Information Provided: Yes Advance Directives on File: No Poor oral hygiene: No Meds Allergies Allergy/AdvReac Type Severity Reaction Status Date / Time No Known Allergies Allergy Verified 06/20/24 14:00 Home Medications ?Medication ?Instructions ?Recorded ?Confirmed ?Last Taken ?Type levothyroxine 88 mcg tablet 88 mcg PO DAILY 02/29/20 09/14/24 09/18/24 History lisinopril 5 mg tablet 5 mg PO DAILY 02/29/20 09/14/24 Unknown History metoprolol succinate 50 mg 50 mg PO DAILY 02/29/20 09/14/24 09/18/24 History tablet,extended release 24 hr omeprazole 40 mg capsule,delayed 40 mg PO DAILY 02/29/20 09/14/24 Unknown History release sertraline 50 mg tablet 50 mg PO DAILY 02/29/20 09/14/24 Unknown History simvastatin 40 mg tablet 40 mg PO BEDTIME 02/29/20 09/14/24 Unknown History clobetasol 0.05 % topical cream 1 appl topical BID 02/04/21 05/27/21 Unknown History fenofibrate 54 mg tablet 54 mg PO DAILY 02/04/21 09/14/24 Unknown History Exam Height,Weight and Vital Signs: Height 5 ft 8 in Assessment and Plan Assessment Anesthesia Assessment: Chart Reviewed Final Anesthetic Review Family History of Problems with Anesthesia: No History of Problems with Anesthesia: No Documented by User: Julia Gregorio DO 09/18/24 10:18 HPI - Anesthesia Eval Consult details Narrative: 79yo M for Laser Ablation Prostate w/Green Light SBP above 200 in pre-op. Currently asymptomatic. Patient reports fluctuating BP, sometimes up to 170s in PCP's office. He took his metoprolol today but not lisinopril. States that his BP increases when going to doctor's offices and hospitals. COUNTS INCLUDE 234 BEDS AT THE [facility] Past Medical History Medical History (Updated 09/14/24 @ 11:51 by Melida Acevedo RN) Hypothyroid Renal mass HTN (hypertension) Hyperlipidemia GERD (gastroesophageal reflux disease) Erectile dysfunction BPH (benign prostatic hyperplasia) Elevated PSA Family History Family history of problems with anesthesia: No Surgical History Surgical History (Updated 09/14/24 @ 11:51 by Melida Acevedo RN) Hx of prostate biopsy History of prostate surgery History of tonsillectomy and adenoidectomy History of Problems with Anesthesia: No Social History Social History Are you a primary child care centre manager to a significant other at home: No Do you presently have visiting nurse or other home services: No Patient Tobacco Use Status: Former Tobacco user Tobacco use type: Cigarette Use of substances other than those prescribed or required for medical reasons: No Are you DNR?: No Advance Directives: No Advance Directives Information Provided: Yes Advance Directives on File: No Poor oral hygiene: No Meds Allergies Allergy/AdvReac Type Severity Reaction Status Date / Time No Known Allergies Allergy Verified 06/20/24 14:00 Home Medications ?Medication ?Instructions ?Recorded ?Confirmed ?Last Taken ?Type levothyroxine 88 mcg tablet 88 mcg PO DAILY 02/29/20 09/14/24 09/18/24 History lisinopril 5 mg tablet 5 mg PO DAILY 02/29/20 09/14/24 Unknown History metoprolol succinate 50 mg 50 mg PO DAILY 02/29/20 09/14/24 09/18/24 History tablet,extended release 24 hr omeprazole 40 mg capsule,delayed 40 mg PO DAILY 02/29/20 09/14/24 Unknown History release sertraline 50 mg tablet 50 mg PO DAILY 02/29/20 09/14/24 Unknown History simvastatin 40 mg tablet 40 mg PO BEDTIME 02/29/20 09/14/24 Unknown History clobetasol 0.05 % topical cream 1 appl topical BID 02/04/21 05/27/21 Unknown History fenofibrate 54 mg tablet 54 mg PO DAILY 02/04/21 09/14/24 Unknown History Exam Exam Date and Time: 09/18/24 1009 Height,Weight and Vital Signs: Height 5 ft 8 in Height 5 ft 8 in Weight 90.6 kg Vital Signs Temperature 97.1 F 09/18/24 09:40 Pulse Rate 53 09/18/24 09:40 Respiratory Rate 16 09/18/24 09:40 Blood Pressure 222/81 H 09/18/24 09:40 Oxygen Delivery Method Room Air 09/18/24 09:40 Temperature 97.1 F 09/18/24 09:40 Pulse Rate 56 09/18/24 09:51 Respiratory Rate 16 09/18/24 09:40 Blood Pressure 203/72 H 09/18/24 09:51 Oxygen Delivery Method Room Air 09/18/24 09:40 Airway Mallampati Class: II TM Dist: >3cm Neck ROM: Full Loose/Missing/Broken Teeth: No (patient denies any loose or broken teeth) Heart: S1S2 Lungs: CTAB Assessment and Plan Assessment Anesthesia Assessment: Anesthesia Plan Discussed and Chart Reviewed Final Anesthetic Review Family History of Problems with Anesthesia: No History of Problems with Anesthesia: No NPO: Yes ASA Class: II Final Preanesthetic Review: No Changes in Pt Med Stat, Meds/Allgs Chart Reviewed, Consent Obtained/Reviewed and Anes Risks/Benef Reviewed Patient Risk: Low Procedure Risk: Low Anesthetic Plan Anesthetic Plan: GA and Agree w/ Assess. and Plan Disposition: Standard PACU
[2024-09-18] MEDS: levoFLOXacin/D5W 500 MG/100 ML PIGGYBACK 100 MG IV (10:35)
[2024-09-18] MEDS: Albuterol/Iprat 2.5/0.5MG 3 ML AMPUL.NEB INHALE (12:13)
--- NOTE | 2024-09-18 12:13 | P.OP_ITS ---
Operative Note Operative Note Date of Service: 09/18/24 Narrative: PreOperative Diagnosis: Bladder outlet obstruction Post Operative Diagnosis: Bladder outlet obstruction Procedure: GreenLight Laser Enucleation of the prostate CPT 13560 Surgeon: Dr Sanjeev Vance Anesthesia: General History of bladder outlet obstruction. Prior procedure 2020. Progressive outlet symptomatology. On cystoscopy found to have significant regrowth of right side with almost the formation of a new median lobe. Recommendation for GreenLight laser prostatectomy. Risks and benefits have been discussed. Focus was placed on development of retrograde ejaculation which is a normal part of this procedure. Procedure: After informed consent was verified the patient was brought to the operating room and placed in a supine position. Anesthesia was administered per protocol. Patient was placed in modified dorsal lithotomy position and prepped and draped in a sterile fashion. Safety pause time-out was confirmed. Antibiotics have been given. A Twenty-four Liberian laser cystoscope was inserted per urethra. No abnormalities were found of the anterior and bulbar urethra. The prostatic urethra shows significant regrowth from the right side. Mild regrowth left side. The old median lobe area was easily seen. On examination we could see both ureteric orifices high laterally. Bladder trabeculation grade 2. Using a GreenLight laser with initial settings of 80 hermosillo incisions were made at the 5 and 7 o'clock position. The incisions were taken down from the bladder neck down to the area just proximal of the veru. These were gradually deepened in order to define the lateral aspects of the median lobe area. The deep boundary of enucleation was defined by the prostate surgical capsule. Once clearly defined the grooves were extended in the lateral directions in order to create a deep groove. The median lobe area was then ablated with minimal tissue. Power increased to 120 w. Once the median lobe area had been cleared, attention was directed to the lateral lobes. Starting with the patient's left lateral lobe. First the 05:00 o'clock groove was further developed. This was moved in the lateral direction to undermine the tissue on the lateral side running from the bladder neck to the prostate apex. The ureteric orifice was used to guide incisions. The laser fiber was placed at the 1 o'clock position and a secondary groove was developed down to the level of prostatic capsule. The creation of a second deep groove defined a segment of intervening tissue similar to a slice of orange. At the apex of the prostate the laser was used to vertically link the two grooves releasing the intervening tissue and creating a segment of tissue. This tissue was then removed with a combination of enucleation and ablation working from the apex toward the bladder neck. Likely there was not a significant amount of tissue compared to the right side A similar procedure was repeated on the patient's right-hand side. There was large overhang from the regrowth on the right lateral side. This was initially undermined. The apex of the area was addressed. This was marked using the laser. We were able to then go up the sidewall and go of the top of the regrowth area. This was marked. Using a series of incisions the regrowth lateral tissue was debulked in broken into small pieces. After the majority of tissue had been debulked remnant tissue was ablated with the side fire laser and the curve of the prostate followed up each side wall clearly defining the anterior remnant strip that remained between the 11 and 1 o'clock positions. At completion debris and pieces of prostate were removed from the bladder with irrigation. Both ureteric orifices were reviewed again in shown to be patent in away from any areas of energy damage. The apical area was reviewed and any stray mucosal ooze was controlled. A 22 Liberian 30 cc balloon Alaniz catheter was placed into the bladder using a flexible stylet. Clear efflux was obtained upon irrigation with a Marquez piston syringe. 50 cc was placed in the balloon and gentle traction was placed. A snap was used to hold tension on the catheter to control bleeding during patient moved and transported. A drainage bag was placed. Once transportation is complete to the PACU the snap will be removed. The patient tolerated the procedure well, he was extubated in the operating and transferred in a stable condition to the recovery area. Total Power 244 kW Lasing time 36:10 - of note 3 fibers were use secondary to heating on the cap of the laser fiber with the laser fiber cap becoming loose. Pathology: Prostate tissue Drains: Alaniz catheter
== END 2024-09-18 13:14 | disposition home or self-care (01) ==
PROVIDERS: PCP Internal Medicine; Visit Provider Urology
PROC: (CPT 52648; principal; 2024-09-18 11:00)
DX: N40.1 Benign prostatic hyperplasia with lower urinary tract symptoms (principal); N13.8 Other obstructive and reflux uropathy; R97.20 Elevated prostate specific antigen [PSA]; N32.89 Other specified disorders of bladder; N28.9 Disorder of kidney and ureter, unspecified; N52.9 Male erectile dysfunction, unspecified; I10 Essential (primary) hypertension; E78.5 Hyperlipidemia, unspecified; E03.9 Hypothyroidism, unspecified; Z79.899 Other long term (current) drug therapy; Z98.890 Other specified postprocedural states; Z87.891 Personal history of nicotine dependence
CPT/HCPCS: 52649; 88305; J0131; J1100; J1956; J2003; J2405; J2704; J3010

== ENCOUNTER → 2024-09-18 09:15 | Outpatient (BNV) | payer MEDICARE, SELFPAY | PROVIDERS: PCP Internal Medicine; Visit Provider Urology | DX: N32.0 Bladder-neck obstruction (principal) | CPT/HCPCS: 52649 ==

== ENCOUNTER → 2024-09-20 10:40 | Outpatient (BNVA) | payer MEDICARE, SELFPAY | PROVIDERS: PCP Internal Medicine; Visit Provider Urology | DX: N40.1 Benign prostatic hyperplasia with lower urinary tract symptoms (principal); N13.8 Other obstructive and reflux uropathy; R31.0 Gross hematuria | CPT/HCPCS: 51700; 51798 ==

== ENCOUNTER 2024-11-01 13:16 | Outpatient (AMB) | payer MEDICARE, SELFPAY ==
--- NOTE | 2024-11-01 13:16 | MHC.OFFVIS ---
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 He is a patient of Dr. Grace. He is seen for the following urologic conditions - lower urinary tract symptoms - erectile dysfunction Six week follow-up from touch up GreenLight laser Leukocytes indicating inflammation Significant improvement in flow Bladder emptying Six-month follow-up PSA Regrowth prostate right side with calcification causing hematuria Lower Urinary Tract Symptoms - GreenLight laser 05/31 PSA stable 2.2 Current visit is for further evaluation of, lower urinary tract symptoms, predominate obstructive symptoms. Current treatment includes - 05/31 GreenLight laser prostate - 10/01 touch up GreenLight laser for calcifications Prostate Symptom Score 06/26 Mild (0-8), Bother 2 07/25 , Mild (0-8), Bother 2 08/27 , Mild (0-8), Bother 3. Symptoms include 08/27 , and are progressing, weak stream, nocturia (>2). Prior Prostate Score mild. PSA 11/20 8.4 - TRUS negative, December 2014 4.6 07/25 2.4, 07/26 1.9, 08/27 2.5, 01/27 2.5 Free 0.7 - 01/28 2.5, 01/29 2.2 Prostate volume 90 gm on US. - 04/02 ct 5.2 X 5.2 X 7.2 - 100GM prostate Testing at next visit will include Prostate Symptom Score, uroflow, bladder scan. Treatment plan 12 month follow-up [facility] Medical History (Updated 09/14/24 @ 11:51 by Melida Acevedo RN) Hypothyroid Renal mass HTN (hypertension) Hyperlipidemia GERD (gastroesophageal reflux disease) Erectile dysfunction BPH (benign prostatic hyperplasia) Elevated PSA Surgical History (Updated 09/14/24 @ 11:51 by Melida Acevedo RN) Hx of prostate biopsy History of prostate surgery History of tonsillectomy and adenoidectomy Social History Are you a primary nurse healthcare manager to a significant other at home: No Do you presently have visiting nurse or other home services: No Patient Tobacco Use Status: Former Tobacco user Tobacco use type: Cigarette Review of Systems Const Denies chills and Denies fever(s) Card Reports no additional complaints and Denies syncope Resp Denies cough GI Denies abdominal pain and Denies heartburn Reports as per HPI and Denies change in libido Neuro Denies syncope Psych Denies change in libido Endo Denies change in libido Physical Exam Const General: cooperative, healthy appearing, comfortable and no acute distress Orientation/consciousness: patient oriented x3 HEENT Face and sinus: Yes normal facial exam Mouth: moist mucous membranes Neck Neck: Yes normal visual inspection, Yes full ROM and Yes trachea midline Chest Chest palpation & inspection: normal inspection of the chest Resp Effort & Inspection: normal respiratory effort, able to speak in complete sentences and no respiratory distress GI Inspection: Yes normal to inspection Back/Spine/Pelvis Cervical Spine: normal cervical lordosis Thoracic/Lumbar Spine: thoracic and lumbar spine normal to inspection Skin General skin exam: no rashes or lesions noted Neuro General: patient oriented x3, gait normal, tone normal and moves all extremities Extrem General: Yes normal to inspection and Yes capillary refill normal Assessment & Plan Assessment & Plan (1) Erectile 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: Code(s): N52.01 - Erectile 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 Category: Medical (2) BPH w urinary obs/LUTS: Code(s): N40.1 - Benign prostatic hyperplasia with lower urinary tract symptoms; N13.8 - Other obstructive and reflux uropathy Category: Medical (3) Elevated PSA: Code(s): R97.20 - Elevated prostate specific antigen [PSA] Category: Medical Plan Check PSA six-month Orders: Orders Prostate Specific Antigen 6 Months N13.8 - Other obstructive and reflux uropathy, N40.1 - Benign prostatic hyperplasia with lower urinary tract symptoms Patient Instructions: This note is constructed using voice recognition software. While every effort has been made to ensure accuracy tour bus driver/guide errors may have been included. Imaging studies, laboratory and physical exam results were discussed and reviewed in detail. No major barriers to patient understanding were identified. An opportunity to ask questions regarding the treatment plan was provided. All questions were answered. The patient expressed understanding and agreement with the above treatment plan. The patient is aware they should contact our office by phone for worsening of their current condition or the appearance of new urologic symptoms. Compliance is encouraged with any medications and followup testing that is ordered. It is a privilege to participate in the urologic care of your patient. If you have any questions or concerns regarding treatment for the above conditions, or other urologic issues, please do not hesitate to contact me. The office telephone contact is [phone]. Sincerely, Dr Sanjeev Vance MD, [facility] - Urology Compassionate Specialist Care for the Genitourinary System Coding Level of Care Code Est Pt Level 3 (33756) Diagnoses Erectile 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 N52.01 BPH w urinary obs/LUTS N40.1; N13.8 Elevated PSA R97.20
--- OUTSIDE RECORDS SUMMARY | 2024-11-01 15:36 | XMS_ITS | Data Portability ---
Author Organization [facility], Telehealth Patient Home Address [address] [place] [address] Assessment Encounter Date Assessment Date Assessment LastModified by Organization Details LastModified Time 08/30/2023 08/30/2023 [id number] [place] [id number] (RAG WASHER) MDM MODERATE MUST MEET 2 OUT OF [...] [email or web address] Not available 02/09/2024 11:06:57 08/14/2024 08/14/2024 [id number] [place] [id number] (RAG WASHER) MDM MODERATE MUST MEET 2 OUT OF [...] available Not available Lab CBC 2024 025 [facility] (Outpatient), [address] [place] [address], [id number], 08/14/2024 10:43:24 lipid panel, blood 2024 025 [facility] (Outpatient), [address] [place] [address], [id number], 08/14/2024 10:43:24 CMP, serum or plasma 2024 025 [facility] (Outpatient), [address] [place] [address], [id number], 08/14/2024 10:43:24 PSA, serum or plasma 2024 025 [facility] (Outpatient), [address] [place] [address], [id number], 08/14/2024 10:43:24 TSH, serum or plasma 2024 025 [facility] (Outpatient), [address] [place] [address], [id number], 08/14/2024 10:43:24 cytology, urine 2023 024 [facility], [address] [place] [address], [place], [address], 03/01/2024 11:13:58 CMP, serum or plasma 2023 [facility] (Outpatient), [address] [place] [address], [id number], 02/28/2024 18:29:13 lipid panel, blood 2023 [facility] (Outpatient), [address] [place], [address], 02/28/2024 13:53:46 hemoglobi n, gastroint estinal, stool 2023 [facility] (Outpatient), [address] [place] [address], [id number], 02/28/2024 13:53:46 CBC w/ auto diff 2023 [facility] (Outpatient), [address] [place] [address], [id number], 02/28/2024 17:43:17 CMP, serum or plasma 2023 [facility] (Outpatient), [address] [place], [address], 02/28/2024 13:53:46 urinalysi s, dipstick 2023 [facility], [address], [address], [place], [address], 02/14/2024 10:56:57 urinalysi s complete, reflex culture 2023 [facility], [address] [facility], [place], [address], 02/16/2024 11:34:20 urinalysi s, dipstick 2023 024 [facility], [address], [address], [place], [address], 10/20/2023 14:21:11 urinalysi s complete, reflex culture 2023 024 [facility], [address] [place] [address], [id number], 10/21/2023 11:31:34 CMP, serum or plasma 2023 024 [facility] (Outpatient), [address] [place] [address], [id number], 08/30/2023 14:53:25 lipid panel, blood 2023 024 [facility] (Outpatient), [address] [place] [address], [id number], 08/30/2023 14:53:25 TSH, serum or plasma 2023 024 [facility] (Outpatient), [address] [place] [address], [id number], 08/30/2023 14:53:26 Referral None recorded. Procedures None recorded. Surgeries None recorded. Imaging CT, abdomen + pelvis, w/o contrast - estephania please 2023 024 [email or web address] [facility] Scheduling, [address] [place] [address], [id number], 02/29/2024 08:28:21 CT, abdomen + pelvis, w/wo contrast 2023 024 [email or web address] Not available 02/16/2024 09:06:25 XR, kidney + ureter + bladder 2023 024 [email or web address] Not available 10/24/2023 01:01:49 Medication Orders ciproflox acin 500 mg tablet 2023 [facility], [address] [place], [address], 02/28/2024 13:26:05 omeprazol e 40 mg capsule,d elayed release 2023 024 [facility], [address] [place], [address], 02/14/2024 11:21:13 Cipro 500 mg tablet 2023 [email or web address] [facility], [address] [place], [address], 02/28/2024 13:23:58 Patient TargetsNo targets recorded. Patient Instructions Encounter Date Encounter Id Patient Instructions Last Modified By Organization Details Last Modified Time 08/30/2023 [id number] hypothyroidism: care instructions Not available 08/30/2023 14:51:57 02/28/2024 [id number] blood in the urine: care instructions Not available 02/28/2024 13:52:23 advance care planning: care instructions Not available 02/28/2024 13:52:24 Discussed and explained advance directives such as standard forms to the patient. Face to face discussion lasted for a duration of __10_ minutes. Not available 02/28/2024 13:53:23 Reason for Referral None Reported. Results Created Date Observation Date Name Description Value Unit Range Abnormal Flag Note LastModifiedBy Organization Detail LastModifiedTime 10/20/1910/20/2023 urina lysis , dipst ick Leukocytes Modera te Not Available [facility] [address], [place], [address], 10/20/2023 14:13:42 10/20/19 24 10/20/2023 urina lysis , dipst ick Nitrite negati ve Not Available [facility] [address], [place], [address], 10/20/2023 14:13:42 10/20/19 24 10/20/2023 urina lysis , dipst ick Urobilinogen .2 Not Available [facility] [address], [place], [address], 10/20/2023 14:13:42 10/20/19 24 10/20/2023 urina lysis , dipst ick Protein Trace Not Available [facility] [address] [address], [place], [address], 10/20/2023 14:13:42 10/20/19 24 10/20/2023 urina lysis , dipst ick pH 6.0 Not Available [address], [place], [address], 10/20/2023 14:13:42 10/20/19 24 10/20/2023 urina lysis , dipst ick Blood Small Not Available [facility] Internal [address], [place], [address], 10/20/2023 14:13:42 10/20/1910/20/2023 urina lysis , dipst ick Specific Tanner 1.010 Not Available [address], [place], [address], 10/20/2023 14:13:42 10/20/19 24 10/20/2023 urina lysis , dipst ick Ketone Negati ve Not Available [address], [place], [address], 10/20/2023 14:13:42 10/20/19 24 10/20/2023 urina lysis , dipst ick Bilirubin Negati ve Not Available [facility] [address] [address], [place], [address], 10/20/2023 14:13:42 10/20/19 24 10/20/2023 urina lysis , dipst ick Glucose Negati ve Not Available [facility] Internal [facility] [address] [address], [place], [address], 10/20/2023 14:13:42 10/20/19 24 10/20/2023 urina lysis , dipst ick Appearance Slight ly Cloudy Not Available [facility] Internal [facility] [address] [facility] [address], [place], [address], 10/20/2023 14:13:42 10/20/19 24 10/20/2023 urina lysis , dipst ick Color Yellow Not Available [facility] [address] [facility] [address], [place], [address], 10/20/2023 14:13:42 02/14/2002/14/2024 urina lysis , dipst ick Leukocytes Negati ve Not Available [facility] [address] [facility] [address], [place], [address], 02/14/2024 10:53:56 02/14/2002/14/2024 urina lysis , dipst ick Nitrite negati ve Not Available [address], [place], [address], 02/14/2024 10:53:56 02/14/2002/14/2024 urina lysis , dipst ick Urobilinogen .2 Not Available [facility] [address] [address], [place], [address], 02/14/2024 10:53:56 02/14/2002/14/2024 urina lysis , dipst ick Protein Negati ve Not Available [facility] [address] [address], [place], [address], 02/14/2024 10:53:56 02/14/2002/14/2024 urina lysis , dipst ick pH 6.0 Not Available [facility] [address] [address], [place], [address], 02/14/2024 10:53:56 02/14/2002/14/2024 urina lysis , dipst ick Blood Large Not Available [facility] [address] [facility] [address], [place], [address], 02/14/2024 10:53:56 02/14/2002/14/2024 urina lysis , dipst ick Specific Tanner 1.010 Not Available [facility] [address], [place], [address], 02/14/2024 10:53:56 02/14/2002/14/2024 urina lysis , dipst ick Ketone Negati ve Not Available [facility] [address] [address], [place], [address], 02/14/2024 10:53:56 02/14/2002/14/2024 urina lysis , dipst ick Bilirubin Negati ve Not Available [facility] Internal [facility] [address], [place], [address], 02/14/2024 10:53:56 02/14/2002/14/2024 urina lysis , dipst ick Glucose Negati ve Not Available [facility] [address], [place], [address], 02/14/2024 10:53:56 02/14/2002/14/2024 urina lysis , dipst ick Appearance Clear Not Available [facility] [address], [place], [address], 02/14/2024 10:53:56 02/14/2002/14/2024 urina lysis , dipst ick Color Yellow Not Available [facility] [address], [place], [address], 02/14/2024 10:53:56 10/24/19 24 10/21/2023 XR, kidne y + urete r + bladd er No observ ation record ed. [email or web address] [facility] [address] [facility], [place], [address], 10/25/2023 09:49:59 03/17/20 24 03/17/2024 CT, abdom en + pelvi s, w/o contr ast No observ ation record ed. [facility] (Medical Records) [address] [place] [address], [place], [address], 08/14/2024 10:35:29 Result Notes None recorded. 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 364114199 Active 2020 Nick Fountain DO [address] [facility], [place], [address], [facility] 1 16:40:19 Hypercho lesterol emia 05741763 Active 2017 Not Available [facility] 0 20:05:24 Atherosc lerosis Active 2017 Not Available [facility] 0 20:05:24 Divertic ulitis 991282442 Active 2017 Not Available [facility] 0 20:05:24 Polyp of colon 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 Active 2017 hyperplas tic Not Available [facility] 0 20:05:24 Cyst of kidney 009888009 Active 2017 Not Available [facility] 0 20:05:24 Gastriti s 6245466 Active 2017 Not Available [facility] 0 20:05:24 Dugan' s esophagu s 013816114 Active 2017 Not Available [facility] 0 20:05:24 Gastroes ophageal reflux disease 742179071 Active 2017 Not Available [facility] 0 20:05:24 Hypothyr oidism 18347561 Active 2017 Not Available [facility] 0 20:05:24 Prostate specific antigen above referenc e range 894903750 Active 2017 Not Available [facility] 0 20:05:24 Impaired fasting glycemia 216143395 Active 2017 Not Available [facility] 0 20:05:24 Steatoti c liver disease 860439080 Active 2017 Not Available [facility] 0 20:05:24 [facility] hyperten casey 50149159 Active 2022 ANN WILDER [address] [place], [address], [facility] 3 11:21:04 Pain of bilatera l knee joints 79233817948 4104 Active 2022 ANN WILDER [address] [place], [address], [facility] 3 11:25:12 Chondrom alacia of left patella 05630468333 9106 Active 2022 ANN IWLDER [address] [place], [address], [facility] 3 11:25:45 Pain of right knee joint 92161533388 4100 Active 2022 ANN WILDER [address] [place], [address], [facility] 3 15:30:22 Pain of left knee joint 82777763384 4107 Active 2022 ANN WILDER [address] [place], [address], [facility] 3 15:30:31 Renal insuffic iency 778147978 Active 2023 Nick Fountain DO [address] [place], [address], [facility] 4 14:50:10 Acute urinary tract infectio n 460698976 Active 2023 ANN WILDER [address] [place], [address], [facility] 4 14:11:06 Kidney stone 23612243 Active 2023 ANN WILDER [address] [place] [address], [address], [facility] 4 14:12:11 Oh hematuri a 848789221 Active 2023 ANN WILDER [address] [place] [address], [address], [facility] 4 09:50:19 Fear of flying 461001563 Active 2023 ANN WILDER [address] [place] [address], [address], [facility] 4 10:27:10 Large prostate 979082160 Active 2023 ANN WILDER [address] [place] [address], [address], [facility] 4 14:16:21 Problem Notes None recorded. Procedures Surgical History Date Name Laterality Status Provider Name and Address Organization Details Recorded Time 6 Colonoscopy completed Joana Hoover [facility] 04/22/2018 10:36:22 Imaging [...] BY MOUTH ONCE DAILY IN THE EVENING 2024 active Not Available Not Available Not Avai lable levothyroxi ne 100 mcg tablet TAKE 1 [...] propionate 50 mcg/actuati on nasal spray,suspe nsion Mcintosh 4 sprays every day by intranasa l [...] Available Not Available Not Available Fluzone High-Dose 0779-6892 (PF) 180 mcg/0.5 mL intramuscul ar syringe 10/15 completed Not Available Not Available Not Available Shingrix (PF) 50 mcg/0.5 mL intramuscul ar suspension, kit PHARMACIS T ADMINISTE RED IMMUNIZAT ION ADMINISTE RED AT TIME OF DISPENSIN G 08/12 completed Not Available Not Available Not Available Fluzone High-Dose 5800-7698 (PF) 180 mcg/0.5 mL intramuscul ar syringe 04/22 completed Not Available Not Available Not Available Fluzone High-Dose (PF) 180 mcg/0.5 mL intramuscul ar syringe 08/12 completed Not Available Not Available Not Available Flublok Quad (PF) 180 mcg (45 mcg x 4)/0.5 mL IM syringe 08/12 completed Not Available Not Available Not Available Vitals Date Recorded Body height Heart rate Oxygen saturation Oxygen saturation in Arterial blood by Pulse oximetry Systolic blood pressure Diastolic blood pressure Provider Name and Address Organization Details Last Updated DateTime 5 173.99 cm 53 /min 98 % 98 % 142 mm[Hg] 78 mm[Hg] [facility] 5 10:06:29 Date Recorded Body height Body mass index (BMI) Body weight Heart rate Oxygen saturation Oxygen saturation in Arterial blood by Pulse oximetry Systolic blood pressure Diastolic blood pressure Provider Name and Address Organization Details Last Updated DateTime 4 173.99 cm 31.3 kg/m2 61644.8 1 g 65 /min 95 % 95 % 132 mm[Hg] 78 mm[Hg] Jeni Nguyễn [facility] 4 14:25:26 Date Recorded Body height Body mass index (BMI) Body weight Heart rate Oxygen saturation Oxygen saturation in Arterial blood by Pulse oximetry Systolic blood pressure Diastolic blood pressure Provider Name and Address Organization Details Last Updated DateTime 4 173.99 cm 31.3 kg/m2 94518.8 1 g 59 /min 98 % 98 % 140 mm[Hg] 80 mm[Hg] Samantha Smith [facility] 4 13:56:51 Date Recorded Body height Body mass index (BMI) Body weight Heart rate Oxygen saturation Oxygen saturation in Arterial blood by Pulse oximetry Systolic blood pressure Diastolic blood pressure Provider Name and Address Organization Details Last Updated DateTime 4 173.99 cm 31.2 kg/m2 20514.2 9 g 64 /min 97 % 97 % 152 mm[Hg] 84 mm[Hg] Jeni Nguyễn [facility] 4 11:00:55 Date Recorded Body height Body mass index (BMI) Body weight Heart rate Oxygen saturation Oxygen saturation in Arterial blood by Pulse oximetry Systolic blood pressure Diastolic blood pressure Provider Name and Address Organization Details Last Updated DateTime 4 173.99 cm 30.9 kg/m2 77731.0 3 g 58 /min 95 % 95 % 128 mm[Hg] 70 mm[Hg] Felice Coulter [facility] 4 13:23:39 Social History Question Answer Notes LastModified by Organizat ion Details LastModified Time Tobacco Smoking Status Former Smoker Not Available [facility] 03/12/2020 03:36:24 What Was The Date Of Your Most Recent Tobacco Screening? 08/14/2024 [email or web address] Information not available 08/14/2024 Sex: Unknown Functional Status Question Answer Note LastModified by Organization D etails LastModified Time Do you or have you ever used any other forms of tobacco or nicotine? No [email or web address] Information not available 10/06/2022 Mental Status None recorded. Family History Nothing Reported. Medical History No medical history recorded. Immunizations Vaccine Type Date Status Note Provider Nam e and Address Organization Details Recorded Time Influenza, split virus, quadrivalent, preservative 01/21/20 21 completed Duy brown [facility] 01/20/2021 13:07:24 COVID-19, mRNA, LNP-S, PF, 30 mcg/0.3 mL dose 02/18/20 21 completed Nick Fountain, DO [address] [place], [address], [facility] 02/18/2021 08:27:41 COVID-19, mRNA, LNP-S, PF, 30 mcg/0.3 mL dose 08/15/19 21 [facility] 16:38:50 COVID-19, mRNA, LNP-S, PF, 30 mcg/0.3 mL dose 08/20/19 22 [facility] 14:09:15 Influenza, split virus, quadrivalent, preservative 02/25/20 18 completed Not Available [facility] 01/23/2020 20:05:24 COVID-19, mRNA, LNP-S, PF, 30 mcg/0.3 mL dose 02/17/20 22 completed Joana brown [facility] 02/17/2022 08:27:09 Influenza, split virus, quadrivalent, preservative 02/17/20 [facility] 02/17/2022 08:27:26 influenza, unspecified formulation 02/23/20 23 [facility] 02/22/2023 11:06:13 SARS-COV-2 (COVID-19) vaccine, UNSPECIFIED 02/23/20 23 completed Duy brown [facility] 02/22/2023 11:06:45 COVID-19, mRNA, LNP-S, PF, 50 mcg/0.5 mL 01/19/20 24 completed Jeni brown [facility] 01/19/2024 15:33:44 influenza, unspecified formulation 01/19/20 24 [facility] 01/[facility]/2024 15:34:57 Respiratory syncytial virus (RSV), unspecified 03/31/20 24 completed Nick Fountain DO [address] [place] [address], [address], [facility] 04/01/2024 08:50:01 Pneumococcal conjugate PCV 13 02/25/20 18 completed Not Available [facility] 01/23/2020 20:05:24 Influenza, split virus, quadrivalent, preservative 02/03/20 19 completed Not Available [facility] 01/23/2020 20:05:24 Tdap 12/12/19 20 completed Not Available [facility] 01/23/2020 20:05:24 pneumococcal polysaccharide PPV23 12/14/19 20 completed Not Available [facility] 01/23/2020 20:05:24 zoster, unspecified formulation 12/14/19 20 completed Not Available [facility] 01/23/2020 20:05:24 Influenza, split virus, quadrivalent, preservative 01/30/20 20 [facility] 11:57:11 zoster, unspecified formulation 02/22/20 20 completed Nick Fountain DO [address] [place] [address], [address], [facility] 02/22/2020 20:05:57 COVID-19, mRNA, LNP-S, PF, 30 mcg/0.3 mL dose 07/20/19 21 completed Erica Gencarelle [facility] 04/11/2021 16:38:30 Past Encounters Encounter ID Performer Location Encounter Start Date Encounter Closed Date Diagnosis/Indication Diagnosis SNOMED-CT Code Diagnosis ICD10 Code Diagnosis Note [id number] Nick Fountain DO [facility] [address],[place] [address] 10/15/2017 10:30:20 10/15/2017 11:06:39 Hypercholesterolemia 89073600 E78.00 LDL cholest was 107 excellent on 40mg statin Hypothyroidism 05135391 E03.9 tsh is also stable Impaired f asting glycemia 644167930 R73.01 a1c is 6.0 and steady as last fall no issues Prostate s pecific antigen above reference range 726133355 R97.20 seeing urology and is good until next july DR Vance [id number] Nick Fountain, [facility] [address] [facility],[place] [address] 04/22/2018 10:25:27 04/22/2018 11:24:15 Impaired fasting glycemia 556105768 R73.01 a1c was 6.0 and steady last fall no issues so will be rechecking today Hypothyroidism 22089401 E03.9 tsh is needed Hypercholesterolemia 136 61288 E78.00 LDL cholest was 107 excellent on 40mg statin on last lab work so will be ghada richards Hepatitis C screening 41 9467662 Z11.59 Environmental allergy 42 9577831 T78.49XA [id number] Nick Fountain [facility] [address] [facility] [facility],[place] [address] 09/06/2018 09:16:48 09/06/2018 09:39:34 Abdominal aortic aneurysm screening 094238879 Z13.6 Impaired f asting glycemia 906309135 R73.01 a1c was 6.0 and steady last fall no issues so will be rechecking today Hypothyroidism 74430055 E03.9 tsh is needed Hypercholesterolemia 136 98495 E78.00 LDL cholest was 107 excellent on 40mg statin on last lab work so will be ghada richards [id number] Nick Fountain [facility] [address] [facility],[place] [address] 12/14/2018 10:55:16 12/14/2018 14:48:12 Hypothyroidism 53347778 E03.9 tsh is needed next lab Impaired f asting glycemia 457838146 R73.01 a1c was 6.3 and steady last spring no issues so will be rechecking in the fall Hypercholesterolemia 136 24842 E78.00 LDL cholest was 107 excellent on 40mg statin on last lab work so will be ghada richards Hepatitis C screening 41 3385372 Z11.59 [facility] 98719927 L30.0 [id number] Nick Fountain DO [facility] [address] [facility] [facility], [facility] [place] [address] 03/03/2019 14:51:02 03/03/2019 15:56:37 Essential hypertension 65880971 I10 not well controlled no exercising as much as is typical for him will have check bp Hypothyroidism 88850061 E03.9 has orders for labs for upcoming visit Impaired f asting glycemia 438283287 R73.01 has orders for labs for upcoming visit advised to work on diet [id number] Nick Fountain DO [facility] [address], [employer] [facility] [place] 7 04/14/2019 10:13:45 04/14/2019 10:38:04 Impaired fasting glycemia 616967840 R73.01 a1c was 6.0 and steady Discussed more exercise Will recheck in spring Hypothyroidism 41736500 E03.9 TSH normal will follow Gastroesop hageal reflux disease 555289946 K21.0 Going for upper endo in May Well controlled currently Essential hypertension 18882303 I10 Well controlled with new lisinopril Will continue to follow [id number] Nick Fountain [facility] [address] [facility], [email or web address] [facility] 7 09/01/2019 10:52:20 09/01/2019 11:45:55 Dugan's esophagus 000735474 K22.70 no symptoms and doing well Impaired f asting glycemia 539891737 R73.01 a1c is 6.5 was 6.0 told pt any highr and this will be classified as diabetes Discussed more exercise Will recheck in summer Hypothyroidism 24596252 E03.9 TSH was normal will follow next lab Hypercholesterolemia 136 47086 E78.00 LDL cholest was 107 excellent on 40mg statin on last lab work so will be ghada richards Steatotic liver disease 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 K76.0 [place] chk on cmp [id number] Nick Fountain [facility] [address] [facility],[place] [employer] [place] 7 12/08/2019 11:09:57 12/08/2019 12:44:33 Hypercholesterolemia 18022633 E78.00 LDL cholest was 107 excellent on 40mg statin on last lab work so will be ghada richards Gastroesop hageal reflux disease [id number] K21.0 Going for [place] endo in [place] Well controlled currently Steatotic liver disease 696514918 K76.0 will chk on cmp Dugan's esophagus 3029 01403 K22.70 no symptoms and doing well Hypothyroidism 27679265 E03.9 TSH was normal will follow next lab Impaired f asting glycemia 386562474 R73.01 a1c is 6.4 was 6.5 was 6.0 told pt any higher and this will be classified as diabetes Discussed more exercise Will recheck in fall warned him he is close to developing diabetes [id number] Nick Fountain, [facility] [address] [facility],[place] [email or web address] [address] 02/07/2020 16:02:38 02/07/2020 16:47:16 Right Achilles tendinitis [id number] 62182 M76.61 will treat conservati vely for now with APAP and advil interchang eably also using ice and heat resting area, not to much activity or strain not a rupture [id number] Nick Fountain [facility] [address] [facility],[place] [address] 04/30/2020 11:21:25 04/30/2020 13:29:29 Active or passive immunization [id number] Z23 will ask him to get shingles Adult [facility] examination 134240064 Z00.01 will get fbw is doing ok overall could stand to lose some weight whcih he agrees nio a1c is done yet [id number] Nick Fountain [facility] [address] [facility],[place] [address] 08/12/2020 10:21:45 08/12/2020 11:27:13 Hypercholesterolemia 02977895 E78.00 LDL cholest was 107 excellent on 40mg statin on last lab work so will be ghada richards Dugan's esophagus 3029 20340 K22.70 no symptoms and doing well Hypothyroidism 24562672 E03.9 TSH was normal will follow next lab Impaired f asting glycemia 278448010 R73.01 a1c is now 6.1 and was 6.4 was 6.5 was 6.0 told pt any higher and this will be classified as diabetes Discussed more exercise he must drink more water and needs to keep an eye on this and he needs to get better hydration Will recheck in fall warned him he is close to developing diabetes Renal insufficiency 7231 76252 N28.9 increase water ubtake we will stop the lisinopril rechk lab in 2 months [id number] [facility] [address] [facility],[place] [address] 10/28/2020 10:16:48 10/28/2020 11:06:46 Hypercholesterolemia 69618424 E78.00 last check of LDL cholest was 107 excellent on 40mg statin on last lab work so will be ghada richards Impaired f asting glycemia 731269593 R73.01 a1c is still 6.1 and was 6.1 6.0 6.1 6.4 was 6.5 was 6.0 told pt any higher and this will be classified as diabetes Discussed more exercise he must drink more water and needs to keep an eye on this and he needs to get better hydration Will recheck in fall warned him he is close to developing diabetes Hypothyroidism 81116551 E03.9 TSH was normal will follow next lab Nummular eczema 90510548 L30.0 79224 [facility] [address] [facility],[place] [address] 04/29/2021 10:14:32 04/30/2021 15:15:07 Dugan's esophagus 609949241 K22.70 no symptoms and doing well Gastroesop hageal reflux disease 464550468 K21.9 seems stable and is ok overall Hypothyroidism 40771370 E03.9 TSH was normal will follow next lab Benign pro static hyperplasia with outflow obstruction 681401576 N40.1 Impaired f asting glycemia 100477998 R73.01 a1c is still 6.1 and was 6.1 6.0 6.1 6.4 was 6.5 was 6.0 told pt any higher and this will be classified as diabetes Discussed more exercise he must drink more water and needs to keep an eye on this and he needs to get better hydration Will recheck in fall warned him he is close to developing diabetes [id number] Nick Fountain [facility] [address],[place] [address] 11/19/2021 15:17:17 11/19/2021 15:44:28 Impaired fasting glycemia 622906019 R73.01 a1c is still 6 and prior [...] he is close to developing diabetes Hypothyroidism 00053148 E03.9 TSH was normal will follow next lab Gastroesop hageal reflux disease 746313823 K21.9 seems stable and is ok overall Hypercholesterolemia 136 35968 E78.00 last check of LDL cholest was 107 excellent on 40mg statin on last lab work so will be rechecking Advance care planning 71 7714168 Z71.89 done 42313 Nick Fountain [facility] [address] [facility],[place] [address] 04/13/2022 10:25:01 04/13/2022 11:56:10 Hypercholesterolemia 39292157 E78.00 last check of LDL cholest was 107 excellent on 40mg statin on last lab work so will be rechecking Hypothyroidism 95689299 E03.9 tsh is still sl elevated at 12 t4 is ok at 0.9pt would like to see how he does with the larger dose another few monthshe will let us know if he notices any increase in fatiguewil l rechk lab in spring Impaired f asting glycemia 450126488 R73.01 a1c is 5.3!!!!!!! ! PRIOR was 6 and prior was was 6.1 6.0 6.1 6.4 was 6.5 was 6.0 told pt any higher and this will be classified as diabetes Discussed more exercise he must drink more water and needs to keep an eye on this and he needs to get better hydration Will recheck in g much better [id number] Nick Fountain, [facility] [address] [facility] [address],Marcia spears [facility] [place] [address] 08/18/2022 11:11:13 08/18/2022 12:23:43 Essential hypertension 65402906 I10 increase metoprolol from 50 to 100 mg due to BP levels both here and at dentist Pain of bi lateral knee joints 5837436796 17428 M25.562 will start with XR's farrukh kneespossi ble meniscus tear vs chondromal acia Chondromal acia of left patella 0132879130 49776 M22.42 left > rightcont with ice, can take advil QD Hypothyroidism 47229239 E03.8 need BW prior to appt with MB Impaired f asting glycemia 439760589 R73.01 needs recheck bw Prostate s pecific antigen above reference range 051016997 R97.20 needs new lab work prior to appt with MB Hypercholesterolemia 136 75062 E78.2 [place] [id number] Nick Fountain, [facility] [address] [facility] [address],[place]arcia Molina [facility] [place] [address] 10/06/2022 13:19:29 10/06/2022 14:53:42 Essential hypertension 01521184 I10 Well controlled with metoprolol 100 Will continue to follow reviewed lab in detail Hypercholesterolemia 136 04515 E78.2 last check of LDL cholest was 107 excellent on 40mg statin on last lab work so will be rechecking Prostate s pecific antigen above reference range 814855676 R97.20 seeing urology and is good until next july DR Vance Impaired f asting glycemia 541134193 R73.01 a1c is 5.9 and doing great [...] recheck in springdoin g much better Hypothyroidism 74289685 E03.8 tsh is excellentp t would like to see how he does with the larger dose another few monthshe will let us know if he notices any increase in fatiguewil l rechk lab in spring Advance care planning 71 7303768 Z71.89 done Chondromal acia of left patella 6213177135 44783 M22.42 offered cortisone inj he will consider in the fall [id number] Nick Fountain, [facility] [address],[place] [address] 04/27/2023 08:25:48 04/27/2023 13:59:50 Essential hypertension 14918770 I10 Well controlled with metoprolol 100 as noted in the pastruns a bit higher in officeWill continue to follow reviewed lab in detail Hypercholesterolemia 136 05598 E78.2 last check of LDL cholest was 107 excellent on 40mg statin on last lab work so will be rechecking Hypothyroidism 17696498 E03.8 tsh is excellentp t would like to see how he does with the larger dose another few monthshe will let us know if he notices any increase in fatiguewil l rechk lab in spring Pain of bi lateral knee joints 4734970750 08006 M25.562 relates doing great with the diclofenac amazing we will cont this prn regimen Gastritis 5857338 K29.70 doinng great with omeprazole we will continue for now as he relates when forgets gets symptomati 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 use outweighs any risk at this point [id number] Nick Fountain, [facility] [address] [facility] [facility] [place] [address] 08/30/2023 14:18:53 08/30/2023 15:05:04 Essential hypertension 91422260 I10 Well controlled with metoprolol 100 as noted in the pastruns a bit higher in officeWill continue to follow reviewed lab in detail Hypercholesterolemia 136 82664 E78.2 last check of LDL cholest was 107 excellent on 40mg statin on last lab work so will be rechecking Gastritis 1176210 K29.70 doinng great with omeprazole we will continue for now as he relates when forgets gets symptomati 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 use outweighs any risk at this point Pain of bi lateral knee joints 2884646314 17655 M25.562 relates doing great with the diclofenac amazing we will cont this prn regimen Hypothyroidism 07143324 E03.8 tsh is excellent last lab will rechkpt would like to see how he does with the larger dose another few monthshe will let us know if he notices any increase in fatiguewil l rechk lab in spring Renal insufficiency 7231 90374 N28.9 increase water ubtake we will stop the lisinopril rechk lab in 2 months [id number] Nick Fountain [facility] [address] [facility],[place] [address] 10/20/2023 13:48:37 10/20/2023 15:41:29 Acute urinary tract infection 159967027 N10 start on ciprourine sent out for culturedip showed blood, could be from the infection or possible stone patient passed Kidney stone 25587918 N2 0.0 agreed to XR to check for stones [id number] Nick Fountain [facility] [address] [facility],[email or web address] [address] 02/28/2024 13:16:06 02/28/2024 14:55:47 Adult health examination 899683446 Z00.01 will get fbw is doing ok overall could stand to lose some weight whcih he agrees nio a1c is done yet Screening for cardiovascular system disease 368694924 Z13.6 will chk lab Screening for malignant neoplasm of colon 457219556 Z12.11 Depression screening 171 423831 Z13.31 neg Oh hematuria 83882794 5 R31.0 given recurrence , will need cytology and CT scan cdh sched him foir late [id number] Nick Fountain [facility] [address] [facility],[email or web address] [address] 02/14/2024 10:43:48 02/15/2024 08:24:49 Acute urinary tract infection 004994049 N10 send out urine and set up with CT as the KUB was negative and urine has been negative?k idney stones vs infection vs malignancy Depression screening 171 579129 Z13.31 SCREENING NEGATIVE Gastroesop hageal reflux disease 897104676 K21.9 needs refill Oh hematuria 86023867 [address] [id number] Nick Fountain [facility] [address] [facility],[place] [address] 08/14/2024 09:55:19 08/14/2024 10:49:39 Benign prostatic hyperplasia with outflow obstruction 694070245 N40.1 overall is stable and following Essential hypertension 51906051 I10 Well controlled with metoprolol 100 as noted in the pastruns a bit higher in officeWill continue to follow reviewed lab in detail Hypercholesterolemia 136 82389 E78.2 last check of LDL cholest was 107 excellent on 40mg statin on last lab work so will be rechecking Hypothyroidism 95946936 E03.8 tsh is excellent last lab will rechkpt would like to see how he does with the larger dose another few monthshe will let us know if he notices any increase in fatiguewil l rechk lab in spring Depression screening 171 236024 Z13.31 neg Health Concerns Section Related Observation LastModified by Organization Detai ls LastModified Time None Recorded Concern Status LastModified by Organization Details LastModified Time None Recorded Advance Directives Directive None Recorded Payers Insurance Date Sequence Insurance Name Policy Number Policy Mirza Covered Member ID Mirza Member ID Guarantor Name 08/11/2024 1 [place]MED[place]ARE [place]AC[place] PPO) [id number] Oh Perry [id number] Oh Perry 08/11/2024 2 [place] [facility] Oh Perry [id number] Oh Perry Notes Date Note Type Note [...] fluids in eveningappetite darrell Fountain DO [address] [place], [address], [facility] 08/30/2023 14:55:22 10/20/19 24 text/htm [...] fever at this time ANN WILDER [address] [place], [address], [facility] 10/20/2023 14:21:43 02/14/20 24 text/htm l c/o clots in urine [...] with patient after imaging ANN WILDER [address] [place], [address], [facility] 02/14/2024 11:27:28 02/28/20 24 text/htm [...] fevers no chills etc Nick Fountain, DO [address] [place] [address], [place], [address] 02/28/2024 13:58:53 08/15/19 25 text/htm [...] initial light headednessbut this past and hes kendrick has had a re growth of a small bladder mass and is going to have this removed by urology Nick Fountain, DO [address] [facility], [place], [address], [facility] 08/14/2024 10:42:42
== END 2024-11-01 14:02 | disposition home or self-care (01) ==
LOC: HO.HUSH 13:17
PROVIDERS: PCP Internal Medicine; Visit Provider Urology
DX: N52.01 Erectile 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 (principal); N40.1 Benign prostatic hyperplasia with lower urinary tract symptoms; N13.8 Other obstructive and reflux uropathy; R97.20 Elevated prostate specific antigen [PSA]; Z13.9 Encounter for screening, unspecified
CPT/HCPCS: 99024

== ENCOUNTER → 2024-11-01 13:16 | Outpatient (BNVA) | payer MEDICARE, SELFPAY | PROVIDERS: PCP Internal Medicine; Visit Provider Urology | DX: N40.1 Benign prostatic hyperplasia with lower urinary tract symptoms (principal); N52.01 Erectile 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; R97.20 Elevated prostate specific antigen [PSA] | CPT/HCPCS: 81003; 99212 ==